=== PATIENT | female | born 1970 | race Caucasian/White ===

== ENCOUNTER 2016-06-08 12:16 | Emergency (ER) | payer SELFPAY ==
[~2016-06-08] VITALS: Ht 162.6 cm; Wt 63.0 kg
[~2016-06-08 12:16] MED LIST: ACETTAB3 OR; AMOX/K CLAV875 M1 PO; AMOXICILLIN/CL875 MG PO; AMOXICILLIN/PO500 MG PO; AMOXIL500 M1 OR; AMOXIL500 MG OR; ASPIRIN LOW81 M1 PO; ATUSS DS OR; AUGMENTIN500 MG OR; CALCIPOTRIEN0.005 % EX; CEPHALEXIN500 MG PO; CILOSTAZOL100 MG PO; CIPRO500 MG OR; CIPROFLOXACN500 MG PO; CLEOCIN150 MG PO; CLOBETASOL0.054 EX; CORTISPORIN OTI10 ML AD; DOXYCYCL HYC100 MG PO; FLEXERIL OR; FLOXIN OTIC OT; FLUOCINONIDE0.051 EX; HUMULIN R1 M1 SC; HYDROCHLOROT12.5 MG PO; KEFLEX500 M1 PO; LEVEMIR FL100 UNIT/M SC; LORTAB 10 OR; LORTAB 10-325 M1 TAB PO; LORTAB 5 OR; NAPROSYN500 MG OR; NAPROSYN500 MG PO; NO; NO HOME MEDS; NO MEDS; NOVOLOG100 IU/1 M SC; ONDANSETRON4 MG PO; PENICILLN VK500 MG OR; PERCOCET 5/321 COMBO PO; PERCOCET 5/325M1 TAB OR; PERCOCET 5/325M1 TAB PO; PREDNISONE10 MG PO; SIMVASTATIN20 MG PO; TORADOL OR; ULTRAM50 M1 PO; ULTRAM50 MG OR; ZYRTEC5 MG OR; [UNRECOGNIZED DRUG - CODE]; [UNRECOGNIZED DRUG - OTHER] PO; [UNRECOGNIZED DRUG - REMARK] SC
[2016-06-08] MEDS ORDERED: MOTRIN800 MG PO (13:41)
[2016-06-08] MEDS ORDERED: TRAMADOL HYDROC50 MG PO (13:41)
[2016-06-08 13:45] VITALS: BP 149/81
== END 2016-06-08 13:45 | disposition home or self-care (01) | DRG 556 ==
LOC: ED 12:16
DX: M25.572 Pain in left ankle and joints of left foot (principal); M79.605 Pain in left leg; Z91.81 History of falling

== ENCOUNTER 2017-06-27 16:28 | Emergency (ER) | payer SELFPAY ==
[~2017-06-27] VITALS: Ht 162.6 cm; Wt 60.9 kg
[~2017-06-27 16:28] MED LIST changes: +MOTRIN800 MG PO; +TRAMADOL HYDROC50 MG PO
[2017-06-27 16:59] LABS: HEMATOCRIT 40.6 % (37.0-47.0); HEMOGLOBIN 12.8 g/dl (12.0-16.0); IMMATURE GRANULOCYTES 0.2 % (0.0-1.0); MEAN CORPUSCULAR HGB 25.4 pG CALC (26.0-32.0); MEAN CORPUSCULAR HGB CONC 31.5 g/L CALC (32.0-36.0); NEUT# 2.97 thou/uL (2.00-7.15); RED BLOOD COUNT 5.03 mill/uL (4.20-5.60); RED CELL DISTRI WIDTH 13.4 % (11.5-15.5)
[2017-06-27 17:00] LABS: MEAN CELL VOLUME 80.7 fL CALC (80.0-100.0)
[2017-06-27 17:11] LABS: ALBUMIN 3.9 g/dL (3.2-5.0); ALKALINE PHOSPHATASE 76 u/l (38-126); ANION GAP 17 (6-22 (CALC)); BILIRUBIN, TOTAL 0.5 mg/dL (0.0-1.4); BUN 15 mg/dL (7-17); BUN/CREATININE RATIO 18 (12-20 (CALC)); CARBON DIOXIDE 28 mmol/l (22-30); CHLORIDE 101 mmol/l (95-108); CREATININE 0.8 mg/dL (0.5-1.0); GFR > 60 ML/MIN (>=60 (CALC)); GFR FOR AFR.AMER. > 60 ML/MIN (>=60 (CALC)); POTASSIUM 4.2 mmol/l (3.5-5.1); SGOT/AST 18 u/l (14-36); SGPT/ALT 28 u/l (9-52); SODIUM 142 mmol/l (137-146); TOTAL PROTEIN 7.4 g/dL (6.3-8.2)
[2017-06-27 17:18] LABS: ACT PARTIAL THROMBO TIME 24.3 SECONDS (20.0-32.5); PROTHROMBIN TIME 10.6 SECONDS (9.0-12.5)
[2017-06-27 17:23] LABS: MYOGLOBIN 43 ng/mL (0 - 62)
[2017-06-27 19:01] VITALS: BP 192/87
== END 2017-06-27 18:45 | disposition left against medical advice (07) | DRG 65 ==
LOC: ED 16:28
DX: I63.9 Cerebral infarction, unspecified (principal); G81.91 Hemiplegia, unspecified affecting right dominant side; R27.0 Ataxia, unspecified; R29.810 Facial weakness; R29.706 NIHSS score 6; F17.210 Nicotine dependence, cigarettes, uncomplicated; Z91.19 Patient's noncompliance with other medical treatment and regimen

== ENCOUNTER 2017-10-10 11:40 | Emergency (ER) | payer OTHER ==
[~2017-10-10] VITALS: Ht 162.6 cm; Wt 62.3 kg
[2017-10-10] MEDS ORDERED: ADULT ASPIRIN E81 MG PO (11:58)
[2017-10-10] MEDS ORDERED: BLOOD PRESSURE (11:59)
[2017-10-10] MEDS ORDERED: LEVEMIR FL100 UNIT/M SC (11:59)
[2017-10-10] MEDS ORDERED: SLEEPING PILL (12:00)
[2017-10-10] MEDS ORDERED: GABAPENTIN100 MG PO (12:00)
[2017-10-10] MEDS ORDERED: NAPROXEN250 MG PO (12:01)
[2017-10-10] MEDS ORDERED: LISINOPRIL10 M1 PO (12:19)
[2017-10-10] MEDS ORDERED: NEURONTIN300 MG PO (12:20)
[2017-10-10] MEDS ORDERED: ATORVASTATIN CA20 MG PO (12:21)
[2017-10-10] MEDS ORDERED: TRAZODONE50 MG PO (12:21)
[2017-10-10] MEDS ORDERED: ASPIRIN 8181 MG PO (12:22)
[2017-10-10] MEDS ORDERED: ESCITALOPRAM OXA5 MG PO (12:23)
[2017-10-10 14:15] VITALS: BP 121/63
== END 2017-10-10 14:15 | disposition home or self-care (01) ==
LOC: ED 11:40
DX: M25.511 Pain in right shoulder (principal)

== ENCOUNTER 2017-11-30 06:16 | Observation (INO) | payer OTHER ==
[~2017-11-30] VITALS: Ht 162.6 cm; Wt 67.0 kg
[~2017-11-30 06:16] MED LIST changes: +ACITRETIN25 MG; +ADULT ASPIRIN E81 MG PO; +ASPIRIN 8181 MG PO; +ATORVASTATIN CA20 MG PO; +BLOOD PRESSURE; +ESCITALOPRAM OXA5 MG PO; +GABAPENTIN100 MG PO; +LISINOPRIL10 M1 PO; +NAPROXEN250 MG PO; +NEURONTIN300 MG PO; +PROTONIX40 M2 PO; +SLEEP AID25 M1 PO; +SLEEPING PILL; +TRAMADOL HCL50 MG PO; +TRAZODONE50 MG PO
--- NOTE | 2017-11-30 06:16 | NUR ---
PT ARRIVED VIA EMS. INT IN PLACE BUT NOT PATENT. PT HOSTILE. NOT COOPERATING. ZOFRAN GIVEN EN ROUTE. BLOOD DRAWN AND INT IN PLACE. PT HAS WHAT APPEARS TO BE PSORISIS ALL OVER.
[2017-11-30] MEDS ORDERED: HYDRALAZINE25 MG PO (06:47)
--- NOTE | 2017-11-30 06:53 | NUR ---
EMS BS 183
[2017-11-30 06:56] LABS: HEMATOCRIT 35.4 % (37.0-47.0); HEMOGLOBIN 11.2 g/dl (12.0-16.0); IMMATURE GRANULOCYTES 0.4 % (0.0-5.0); MEAN CELL VOLUME 85.7 fL CALC (80.0-100.0); MEAN CORPUSCULAR HGB 27.1 pG CALC (26.0-32.0); MEAN CORPUSCULAR HGB CONC 31.6 g/L CALC (32.0-36.0); NEUT# 9.17 thou/uL (2.00-7.15); RED BLOOD COUNT 4.13 mill/uL (4.20-5.60); RED CELL DISTRI WIDTH 13.6 % (11.5-15.5)
--- NOTE | 2017-11-30 07:00 | NUR ---
RECEIVED REPORT FROM KLEVER SINGH
[2017-11-30 07:09] LABS: ALBUMIN 3.7 g/dL (3.2-5.0); ALKALINE PHOSPHATASE 88 u/l (38-126); AMYLASE < 30 u/l (30-110); ANION GAP 19 (6-22 (CALC)); BILIRUBIN, TOTAL 0.8 mg/dL (0.0-1.4); BUN 16 mg/dL (7-17); BUN/CREATININE RATIO 15 (12-20 (CALC)); CARBON DIOXIDE 23 mmol/l (22-30); CHLORIDE 106 mmol/l (95-108); GFR 60 ML/MIN (>=60 (CALC)); GFR FOR AFR.AMER. > 60 ML/MIN (>=60 (CALC)); LIPASE 20 u/l (23-300); POTASSIUM 4.4 mmol/l (3.5-5.1); SGOT/AST 21 u/l (14-36); SODIUM 143 mmol/l (137-146); TOTAL PROTEIN 7.6 g/dL (6.3-8.2)
[2017-11-30 07:21] LABS: MYOGLOBIN 37 ng/mL (0 - 62)
--- NOTE | 2017-11-30 08:02 | NUR ---
PT RETURN FROM CT IN STABLE CONDITION VIA STRETCHER, CONTINUES TO C/O PAIN AND NAUSEA. DR ORTEGA ADVISED. PT MEDICATED ORDERED.
--- NOTE | 2017-11-30 08:15 | NUR ---
URINE OBTAINED VIA STRAIGHT CATH. PT TOLERATED WITHOUT DIFFICULTY. REPORTS DECREASE IN PAIN AND NAUSEA, RATING PAIN NOW 3/10. PT GIVEN CALL LIGHT AND INSTRUCTED TO CALL FOR ASSIST.
--- NOTE | 2017-11-30 08:33 | NUR ---
SUPPOSITORY GIVEN ORDERED. INSTRUCTED PT TO CALL FOR ASSIST. CALL LIGHT IN REACH.
[2017-11-30 08:34] LABS: URINE BILIRUBIN - DIPSTICK NEGATIVE (NEGATIVE); URINE BLOOD DIPSTICK SMALL (NEGATIVE); URINE COLOR YELLOW; URINE GLUCOSE - DIPSTICK 250 mg/dL (NEGATIVE); URINE KETONE 40 mg/dL (NEGATIVE); URINE LEUK ESTERASE NEGATIVE (NEGATIVE); URINE NITRITE - DIPSTICK NEGATIVE (Negative); URINE PROTEIN - DIPSTICK 30 mg/dL (NEG-TRACE)
[2017-11-30 08:36] LABS: URINE CLARITY CLEAR; URINE MUCUS MODERATE hpf (NONE-FEW); URINE RBC 0-2 RBC/hpf (0-5)
--- NOTE | 2017-11-30 09:54 | NUR ---
PT HAS MODERATE BOWEL MOVEMENT. AMBULATES TO AND FROM RESTROOM WITH LIMPING GAIT WHICH IS HER BASELINE.
[2017-11-30] MEDS ORDERED: MIRALAX3350 N1 PO (09:58)
[2017-11-30] MEDS ORDERED: ZOFRAN ODT4 MG PO (09:58)
[2017-11-30] MEDS ORDERED: PREVACID30 M3 PO (09:58)
--- NOTE | 2017-11-30 10:40 | NUR ---
PATIENT DIRECTOR REACTOR PROJECTS LIGHT, REPORTS ABD PAIN 11/03. INFORMED.
[2017-11-30 11:12] LABS: BARBITURATES NEGATIVE (NEGATIVE); COCAINE NEGATIVE (NEGATIVE); METHADONE NEGATIVE (NEGATIVE); OXCYCODONE NEGATIVE (NEGATIVE); TETRAHYDROCANNABIONOL NEGATIVE (NEGATIVE); TRICYLIC ANTIDEPRESSANTS NEGATIVE (NEGATIVE)
--- NOTE | 2017-11-30 11:20 | NUR ---
PT REPORTS PAIN AND NAUSEA RETURNING, DR ORTEGA NOTIFIED. PT MEDICATED ORDERERED.
--- NOTE | 2017-11-30 11:37 | NUR ---
ATTEMPTED TO CALL REPORT, NURSE IN ANOTHER PT'S ROOM
--- NOTE | 2017-11-30 11:43 | NUR ---
PT APPEARS MORE COMFORTABLE, REPORTS DECREASE IN PAIN. NO WRETCHING NOTED AT THIS TIME. PT PLACED ON PORTABLE TELE BOX, AWAITING TRANSPORT TO [facility].
--- NOTE | 2017-11-30 11:57 | NUR ---
KLEVER STERN ANSWERED AND SAID SHE WOULD CALL BACK
--- NOTE | 2017-11-30 12:45 | NUR ---
PT TO MEDSURG IN STABLE CONDITION VIA STRETCHER.
--- NOTE | 2017-11-30 13:10 | NUR ---
REPORT RECEIVED FROM FANTA IN ED, PT ARRIVED ON UNIT VIA STRETCHER @ 1233 AND ASSISTED TO BED, DID NOT ANSWER ORIENTATION QUESTIONS TO DATE BUT TO PLACE AND . DRY HEAVING NOISILY & PROFUSELY WITH NO VOMITUS, RESTLESS IN BED, GOWN SOILED WITH BM, BODY SOILED WITH BM ALSO, PERICARE GIVEN AND GOWN CHANGED. PT SUDDENLY APPEAR TO GET COMFORTABLE, CLOSED HER EYES AND WILL NO MORE RESPOND TO QUESTIONS AT THIS TIME. BED AND BODY ALARMS PLACED, CALL SOTO IN REACH, IVF INFUSING, WILL CONTINUE TO MONITOR.
[2017-11-30 13:30] VITALS: BP 182/79
[2017-11-30 14:36] VITALS: BP 137/87
--- NOTE | 2017-11-30 18:48 | NUR ---
PT HAS BEEN DRYHEAVING ALL AFTERNOON AND IT GETS WORSE WHENEVER SHE HAS COMPANY, SHE HAS ALSO BEEN ASKING FOR PAIN MED AND SPECIFICALLY ASKED FOR DILAUDID WHICH IS NOT ORDERED, [employer] NOTIFIED OF CONDITION AND GAVE NEW ORDERS FOR PHENERGAN ONLY. MANY FAMILY MEMBERS ARE ASKING FOR INFORMATION ALSO, [employer] (SON) WAS GIVEN PRIVACY CODE NUMBER AFTER PT GAVE CONSENT FOR HIM TO HAVE IT. HE WAS ADVISED TO CONTACT ALL THE OTHER FAMILY MEMBERS AND UPDATE THEM OF HER CONDITION RATHER THAN HAVING SEVERAL MEMBERS CALLING FOR INFORMATION INDIVIDUALLY.
[2017-11-30 19:24] VITALS: BP 132/76
--- NOTE | 2017-11-30 19:30 | NUR ---
PATIENT RESTING IN BED-AWAKE WITH DRY HEEVES. PATIENT WAS JUST MEDICATED FOR N/V WITH PHENERGAN 1 HOUR AGO. CONT TO DRINK GATORADE. IVF NS PATENT AND INFUSING VIA LEFT AC SITE. SITE APPEARS HEALTHY AT THIS TIME. CALL LIGHT IN REACH. WILL CONT TO MONITOR.
--- NOTE | 2017-11-30 21:15 | NUR ---
PATIENT RESTING IN BED. PATIENT CONT TO DRINK GATORADE AND THEN VOMITS IT BACK UP. PATIENT MEDICATED WITH ZOFRAN ORDERED FOR N/V. ACCU-CHECK 293 TONIGHT. PATIENT REFUSING TO TAKE ANY PO MEDS AT THIS TIME. PATIENT IS VERY DRAMATIC. APPEARS EVEN WORSE WHEN STAFF IN ROOM. CALL LIGHT IN REACH. WILL CONT TO MONITOR.
--- NOTE | 2017-11-30 23:00 | NUR ---
PATIENT RESTING IN BED C/O SEVERE N/V. MOSTLY DRY HEEVES. PATIENT IS TAKING IN ORAL FLUIDS BUT VOMITS THEM BACK UP SOON SHE DRINKS THEM. IV SITE TO LEFT AC INTACT WITH IV FLUIDS NS PATENT AND INFUSING AT 125CC/HR. SITE REMAINS HEALTHY AT THIS TIME. TELE MONITOR IN PLACE. SAFETY PRECAUTIONS REINFORCED. CALL LIGHT IN REACH. WILL CONT TO MONITOR.
[2017-12-01] VITALS: BP 134/71
--- NOTE | 2017-12-01 00:30 | NUR ---
PATIENT MEDICATED WITH PHENERGAN 12.5MG IVP FOR N/V. RESTING IN BED. CALL LIGHT IN REACH. WILL CONT TO MONITOR.
--- NOTE | 2017-12-01 01:14 | NUR ---
PATIENT RESTING IN BED-CONT TO ASK FOR SOMETHING TO DRINK. EXPLAINED THAT SHE IS VOMITTING EVERYTHING THAT SHE DRINKS AND SHOULD HOLD ON FLUIDS AT THIS TIME. PATIENT MEDICATED WITH ATIVAN 1MG AND REGLAN 10 MG IVP ORDERED. CALL LIGHT IN REACH. WILL CONT TO MONITOR.
--- NOTE | 2017-12-01 01:45 | NUR ---
APPEARS SLEEPING AT THIS TIME-POSITIONED ON RIGHT SIDE WITH EYES CLOSED. RESPS ARE EVEN AND UNLABORED. IVF NS PATENT AND INFUSING AT 125CC/HR. SITE APPEARS HEALTHY AT THIS TIME. CALL LIGHT IN REACH. WILL CONT TO MONITOR.
--- NOTE | 2017-12-01 03:47 | NUR ---
PATIENT RESTING IN BED C/O SEVERE NAUSEA AND VOMITTING. MOSTLY DRY HEEVES-PATIENT IS TAKING IN ORAL FLUIDS BUT VOMITS THEM BACK UP SOON SHE DRINKS THEM. IV SITE TO LEFT AC INTACT WITH IVF NS PATENT AND INFUSING AT 125CC/HR. SITE APPEARS HEALTHY AT THIS TIME. TELE MONITOR IN PLACE. SAFETY PRECAUTIONS REINFORCED. CALL LIGHT IN REACH. WILL CONT TO MONITOR.
[2017-12-01 04:21] VITALS: BP 150/67
--- NOTE | 2017-12-01 04:52 | NUR ---
RESTING IN BED-APPEARS SLEEPING AT THIS TIME. IVF PATENT AND INFUSING VIA LEFT AC SITE. TELE MONITOR IN PLACE. CALL LIGHT IN REACH. WILL CONT TO MONITOR.
--- NOTE | 2017-12-01 07:24 | NUR ---
ENTERED PT'S ROOM, PT ASKED FOR SOME WATER WHICH WAS GIVEN, TOLERATED WELL; RESP EVEN UNLABORED, WILL CONTINUE TO MONITOR.
[2017-12-01 07:46] VITALS: BP 158/73
--- NOTE | 2017-12-01 07:46 | NUR ---
PT ALERT ORIENT X3; NO NAUSEA OR VOMITING NOTED; RESP EVEN UNLABORED; R SIDED WEAKNESS; LUNGS CLEAR; ABD SOFT NON TENDER, ACTIVE BS;#18 LAC, NS INFUSING @125ML/HR, SITE APPEARS HEALTHY; TELE IN PLACE; HX OF PSORISIS NOTED; R GREAT TOE AMPUTATED, SITE APPEARS HEALTHY; RED AREA TO R ANKLE OPEN TO AIR, NO DRAINAGE NOTED; TRACE EDEMA L ANKLE; BED IN LOW LOCKED POSITION, CALL LIGHT IN REACH; SAFETY PRECAUTION REINFORCED. WILL CONTINUE TO MONITOR.
--- NOTE | 2017-12-01 08:57 | NUR ---
ADMINISTERED PHENERGAN PER PT REQUEST, ALONG WITH AM MEDS; DRY HEAVING NOTED; WILL CONTINUE TO MONITOR.
--- NOTE | 2017-12-01 09:10 | NUR ---
jacek dick, at bs to discuss poc
[2017-12-01 11:10] VITALS: BP 134/53
--- NOTE | 2017-12-01 11:31 | NUR ---
DR BOWEN AND TIARA BANKS AT [facility] TO DISCUSS POC
--- NOTE | 2017-12-01 11:50 | NUR ---
ENTERED ROOM PT SITTING UP EDGE OF BED UNDRESSED, ANGRY, STATED SHE HAS TO USE THE COMMODE, ASSISTED PT TO BSC, PT PULLED OUT TELE STATED SHE DOES NOT NEED IT; SPOKE WITH TIARA BANKS SHE STATED IT'S OK TO LEAVE TELE OFF, NOTIFY DAVID, ER; PT VOIDED 500CC RADHA URINE; SENT UA TO LAB; PT BACK INTO TO BED; PT EDUCATED TO CALL FOR ASSISTANCE. CALL SOTO IN REACH.
[2017-12-01] MEDS ORDERED: COMPAZINE10 MG PO (12:20)
--- NOTE | 2017-12-01 14:18 | NUR ---
DC INSTRUCTIONS REVIEWED WITH PT, PT VERBALIZE UNDERSTANDING; PT'S SON WAS CALLED TO PICK HER UP AND TO BRING CLOTHING FOR PT. PT VOICED NO CONCERNS;
--- NOTE | 2017-12-01 15:31 | NUR ---
PT LAYING IN BED WAITING FOR HER RIDE; NO SIGN OF DISTRESS NOTED; PT VOICED NO CONCERNS; HER SON WAS CALLED AGAIN TO SEE IF HE'S ON HIS WAY, HE STATED THAT SOMEONE ELSE WILL PICK HER UP AND SHOULD BE AT [facility] SOON WITH HER CLOTHING. WILL CONTINUE TO MONITOR.
--- NOTE | 2017-12-01 15:43 | NUR ---
PT BEING TRFO VIA W/C BY A VOLUNTEER IN STABLE CONDITION.
== END 2017-12-01 15:45 | disposition home or self-care (01) ==
LOC: ED 06:16 → ED-I 10:52 → ED 11:26 → MS2 11:27
PROVIDERS: Emergency Medicine; ADMIT Internal Medicine; ATTEND Internal Medicine
DX: K56.41 Fecal impaction (principal); I10 Essential (primary) hypertension; E11.51 Type 2 diabetes mellitus with diabetic peripheral angiopathy without gangrene; I25.10 Atherosclerotic heart disease of native coronary artery without angina pectoris; E78.5 Hyperlipidemia, unspecified; I69.951 Hemiplegia and hemiparesis following unspecified cerebrovascular disease affecting right dominant side; L40.9 Psoriasis, unspecified; F17.210 Nicotine dependence, cigarettes, uncomplicated; Z79.4 Long term (current) use of insulin; Z91.19 Patient's noncompliance with other medical treatment and regimen; Z95.820 Peripheral vascular angioplasty status with implants and grafts; Z95.1 Presence of aortocoronary bypass graft
CPT/HCPCS: G0378; J2060; Q9967; S0164

== ENCOUNTER 2017-12-04 19:56 | Emergency (ER) | payer OTHER ==
[~2017-12-04] VITALS: Ht 162.6 cm; Wt 59.1 kg
[~2017-12-04 19:56] MED LIST changes: +COMPAZINE10 MG PO; +HYDRALAZINE25 MG PO; +MIRALAX3350 N1 PO; +PREVACID30 M3 PO; +ZOFRAN ODT4 MG PO
[2017-12-04 20:45] LABS: HEMATOCRIT 37.6 % (37.0-47.0); HEMOGLOBIN 12.1 g/dl (12.0-16.0); IMMATURE GRANULOCYTES 0.7 % (0.0-5.0); MEAN CELL VOLUME 84.9 fL CALC (80.0-100.0); MEAN CORPUSCULAR HGB 27.3 pG CALC (26.0-32.0); MEAN CORPUSCULAR HGB CONC 32.2 g/L CALC (32.0-36.0); NEUT# 12.32 thou/uL (2.00-7.15); RED BLOOD COUNT 4.43 mill/uL (4.20-5.60); RED CELL DISTRI WIDTH 13.2 % (11.5-15.5)
[2017-12-04 21:05] LABS: ALBUMIN 3.5 g/dL (3.2-5.0); ALKALINE PHOSPHATASE 62 u/l (38-126); AMYLASE < 30 u/l (30-110); ANION GAP 25 (6-22 (CALC)); BILIRUBIN, TOTAL 0.7 mg/dL (0.0-1.4); BUN 18 mg/dL (7-17); BUN/CREATININE RATIO 20 (12-20 (CALC)); CARBON DIOXIDE 21 mmol/l (22-30); CHLORIDE 100 mmol/l (95-108); CREATININE 0.9 mg/dL (0.5-1.0); GFR > 60 ML/MIN (>=60 (CALC)); GFR FOR AFR.AMER. > 60 ML/MIN (>=60 (CALC)); LIPASE 22 u/l (23-300); POTASSIUM 4.4 mmol/l (3.5-5.1); SGOT/AST 18 u/l (14-36); SODIUM 142 mmol/l (137-146); TOTAL PROTEIN 6.9 g/dL (6.3-8.2)
[2017-12-04] MEDS ORDERED: PHENERGAN25 MG RE (22:48)
[2017-12-04 23:55] VITALS: BP 170/91
== END 2017-12-04 23:30 | disposition home or self-care (01) ==
LOC: ED 19:56
PROVIDERS: Family Medicine
DX: R11.10 Vomiting, unspecified (principal); K59.00 Constipation, unspecified; I10 Essential (primary) hypertension; E11.9 Type 2 diabetes mellitus without complications; Z95.1 Presence of aortocoronary bypass graft; Z95.820 Peripheral vascular angioplasty status with implants and grafts; R10.9 Unspecified abdominal pain

== ENCOUNTER 2017-12-16 12:47 | Inpatient (IN) | payer OTHER ==
[2017-12-16] VITALS (7 sets, daily range): BP systolic 145–192; BP diastolic 75–97
[~2017-12-16] VITALS: Ht 162.6 cm; Wt 59.1 kg
[~2017-12-16 12:47] MED LIST changes: +PHENERGAN25 MG RE
--- NOTE | 2017-12-16 13:20 | NUR ---
PT TRIAGED, TO ROOM VIA WC.
[2017-12-16 14:48] LABS: HEMOGLOBIN 10.4 g/dl (12.0-16.0); IMMATURE GRANULOCYTES 0.6 % (0.0-5.0); MEAN CELL VOLUME 86.8 fL CALC (80.0-100.0); MEAN CORPUSCULAR HGB 27.4 pG CALC (26.0-32.0); MEAN CORPUSCULAR HGB CONC 31.5 g/L CALC (32.0-36.0); NEUT# 4.7 thou/uL (2.00-7.15); RED BLOOD COUNT 3.8 mill/uL (4.20-5.60); RED CELL DISTRI WIDTH 13.4 % (11.5-15.5)
--- NOTE | 2017-12-16 14:55 | NUR ---
IV ABT INFUSING PT AWAITING TEST RESULTS. CALL LIGHT WIHTIN REACH AFEBRILE. VSS.
[2017-12-16 15:02] LABS: ALBUMIN 3.2 g/dL (3.2-5.0); ALKALINE PHOSPHATASE 70 u/l (38-126); ANION GAP 17 (6-22 (CALC)); BILIRUBIN, TOTAL 0.7 mg/dL (0.0-1.4); BUN 17 mg/dL (7-17); BUN/CREATININE RATIO 17 (12-20 (CALC)); CARBON DIOXIDE 26 mmol/l (22-30); CHLORIDE 99 mmol/l (95-108); GFR 60 ML/MIN (>=60 (CALC)); GFR FOR AFR.AMER. > 60 ML/MIN (>=60 (CALC)); SGOT/AST 19 u/l (14-36); SODIUM 137 mmol/l (137-146); TOTAL PROTEIN 6.6 g/dL (6.3-8.2)
[2017-12-16 15:03] LABS: POTASSIUM 5.3 mmol/l (3.5-5.1)
--- NOTE | 2017-12-16 16:27 | NUR ---
MD AT BEDSIDE TO DISCUSS RESULTS AND PLAN OF CARE.
--- NOTE | 2017-12-16 16:37 | NUR ---
ROPE LAYING MACHINE OPERATOR AT BEDSIDE EVALUALTING PT PRIOR TO OR TRANSFER.
--- NOTE | 2017-12-16 17:20 | NUR ---
PT TO OR VIA STRETCHER ACCOMPANIED BY OR NURSE. IV SITE HEALTHY. VSS. AFEBRILE. IV ABTS COMPLETED.
--- NOTE | 2017-12-16 21:00 | NUR ---
PATIENT ARRIVED FROM PACU VIA STETCHER WITH PACU STAFF IN ATTENDANCE. PATIENT IS DROWSY BUT AROUSABLE AND TRANSFERRED FROM STRETCHER TO BED. PATIENT WITH LARGE LLE DRESSING INTACT AND SECURED WITH BUD WRAP-ELEVATED ON PILLOWS. TOES ARE WARM TO TOUCH AND PATIENT IS ABLE TO MOVE THE LEFT FOOT TOES. ICE PACK TO BEHIND OF THE LEFT KNEE. IVF SITE TO LEFT HAND-SITE APPEARS HEALTHY AT THIS TIME WITH IVF NS PATENT AND INFUSING ORDERED. BS IN PACU WAS 128. PATIENT ORIENTED TO ROOM AND SURROUNDINGS. INSTRUCTED ON USE OF NURSE CALL LIGHT SYSTEM AND TV REMOTE. SAFETY PRECAUTIONS REVIEWED WITH PATIENT. CALL LIGHT IN REACH. WILL CONT TO MONITOR.
--- NOTE | 2017-12-16 21:30 | NUR ---
PATIENT MAX ASSIST TO THE BSC-PATIENT WITH HX OF CVA WITH RIGHT SIDED WEAKNESS. PATIENT WAS ABLE TO VOID 450CC OF RADHA URINE AND HAD LARGE BROWN FORMED BM. ASSISTED BACK TO BED. PATIENT WITH DRY HEAVES AND LOUD WRETCHING. MEDICATED WITH ZOFRAN 4MG IVP. LEFT FOOT ELEVATED ON PILLOWS. CALL LIGHT IN REACH. WILL CONT TO MONITOR.
--- NOTE | 2017-12-17 02:28 | NUR ---
PATIENT RESTING IN BED WITH DRY HEEVES. NO EMESIS JUST LOUD WRETCHING. PATIENT MEDICATED WITH ZOFRAN 4MG IVP ORDERED FOR N/V. IVF PATENT AND INFUSING VIA LEFT HAND SITE. LARGE BULKY DRESSING TO LLE INTACT AND SECURED WITH BUD WRAP. ELEVATED ON PILLOWS. SAFETY PRECAUTIONS REINFORCED.CALL LIGHT IN REACH. WILL CONT TO MONITOR,
[2017-12-17 04:41] VITALS: BP 151/77
--- NOTE | 2017-12-17 04:56 | NUR ---
RESTING QUIETLY AT THIS TIME-RESP ARE EVEN AND UNLABORED. NO DRY HEAVES OR WRTCHING AT THIS TIME. IVF NS PATENT AND INFUSING AT 100CC/HR VIA LEFT HAND SITE. CALL LIGHT IN REACH. WILL CONT TO MONITOR.
--- NOTE | 2017-12-17 06:16 | NUR ---
PATIENT AWAKE AND AGAIN STARTED WITH DRY HEAVES AND WRETCHING-WANTS SOMETHING TO DRINK BUT UNABLE TO KEEP ANYTHING DOWN. PATIENT MAX ASSIST OOB TO BSC TO VOID AND THEN BACK TO BED. PATIENT MEDICATED WITH ZOFRAN 4MG IVP FOR N/V. SAFETY PRECAUTIONS REINFORCED. CALL LIGHT IN REACH. WILL CONT TO MONITOR.
--- NOTE | 2017-12-17 07:15 | NUR ---
REPORT RECEIVED FROM KLEEVR DIAZ;PT APPEARS TO BE SLEEPING IN RIGHT SIDE LAYING POSITION;RESPIRATIONS EVEN AND UNLABORED ON RA;NO S/S OF DISTRESS NOTED;LEFT LEG ELEVATED ON X2 PILLOWS,DRESSING APPEARS CDI;IV FLUIDS INFUSING WITH EASE;FALL PRECAUTIONS NOTED WITH BED IN THE LOWEST POSITION AND CALL LIGHT IN REACH;WILL CONTINUE TO MONITOR
--- NOTE | 2017-12-17 07:50 | NUR ---
PT COMPLAINS OF NAUSEA UNRELIEVED BY PRN ZOFRAN; NOTIFIED AND NEW ORDERS RECEIVED.
[2017-12-17 08:13] VITALS: BP 192/83
--- NOTE | 2017-12-17 08:15 | NUR ---
PT RESTING IN BED,DRY HEAVING;PT MEDICATED WITH PRN PHENERGAN 25MG IVP,WILL MONITOR FOR EFFECT;VS OBTAINED AND ASSESSMENT COMPLETED;RESPIRATIONS EVEN AND UNLABORED ON RA,CLEAR LUNG SOUNDS NOTED;ABDOMEN SOFT ON PALPATION AND HYPOACTIVE IN ALL 4 QUADRANTS;WEAK PEDAL PULSE TO RIGHT FOOT NOTED;UNABLE TO PALPATE LEFT DUE TO DRESSING;PT IS POST OP DAY #1 LEFT HEEL I&D, DRESSING REMAINS CDI,WILL REINFORCE NEEDED;CAP REFILL LESS THAN 3 SECONDS;ENCOURAGED ELEVATION OF LEFT FOOT ON X2 PILLOWS,ICE PACKS ALSO PROVIDED;SCD NOTED TO RIGHT LEG;LEFT SIDED WEAKNESS SHOULD BE NOTED R/T HX OF CVA;#20G TO RIGHT HAND INFUSING NS @ 100ML/HR,SITE APPEARS HEALTHY;PT DENIES ANY CURRENT PAIN,PAIN SCALE AND REPORTING EDUCATED;ACCUCHECK 215,PT COVERED WITH 3UNITS OF NOVOLOG PER ORDER;INSTRUCTED PT TO CALL FOR ASSISTANCE IF NEEDED;FALL PRECAUTIONS IN PLACE WITH CALL LIGHT IN REACH;WILL CONTINUE TO MONITOR
[2017-12-17 09:02] VITALS: BP 190/88
--- NOTE | 2017-12-17 09:08 | NUR ---
PT CURRENT BP 190/88 HR 100. NOTIFIED AND NEW ORDERS RECEIVED AT THIS TIME.
[2017-12-17 09:18] LABS: ALBUMIN 3.3 g/dL (3.2-5.0); ALKALINE PHOSPHATASE 69 u/l (38-126); ANION GAP 15 (6-22 (CALC)); BILIRUBIN, TOTAL 0.5 mg/dL (0.0-1.4); BUN 14 mg/dL (7-17); BUN/CREATININE RATIO 16 (12-20 (CALC)); CARBON DIOXIDE 27 mmol/l (22-30); CHLORIDE 103 mmol/l (95-108); CREATININE 0.9 mg/dL (0.5-1.0); GFR > 60 ML/MIN (>=60 (CALC)); GFR FOR AFR.AMER. > 60 ML/MIN (>=60 (CALC)); SGOT/AST 15 u/l (14-36); SODIUM 140 mmol/l (137-146)
--- NOTE | 2017-12-17 09:25 | NUR ---
PT MEDICATED WITH 20 MG OF LABETALOL IVP BY JONATHAN SHERMAN RN;WILL MONITOR FOR EFFECTIVENESS;PT REPORTS NAUSEA HAS DECREASED AT THIS TIME.
[2017-12-17 10:05] VITALS: BP 130/68
--- NOTE | 2017-12-17 10:05 | NUR ---
BP RE-CHECK 130/68 HR 81
[2017-12-17 10:09] LABS: HEMATOCRIT 29.6 % (37.0-47.0); HEMOGLOBIN 9.1 g/dl (12.0-16.0); IMMATURE GRANULOCYTES 0.4 % (0.0-5.0); MEAN CELL VOLUME 86.5 fL CALC (80.0-100.0); MEAN CORPUSCULAR HGB 26.6 pG CALC (26.0-32.0); MEAN CORPUSCULAR HGB CONC 30.7 g/L CALC (32.0-36.0); NEUT# 9.05 thou/uL (2.00-7.15); RED BLOOD COUNT 3.42 mill/uL (4.20-5.60); RED CELL DISTRI WIDTH 13.4 % (11.5-15.5)
--- NOTE | 2017-12-17 11:00 | NUR ---
AT BEDSIDE DISCUSSING POC.
--- NOTE | 2017-12-17 11:20 | NUR ---
PT RESTING IN BED WITH SIGNIFICANT OTHER AT BEDSIDE;PT DENIES ANY CURRENT PAIN, REPORTS NAUSEA IS STILL PRESENT BUT DECREASED SINCE THIS MORNING;EMESIS BAGS PROVIDED;ACCUCHECK 199, PT COVERED WITH 1 UNIT OF NOVOLOG PER ORDER;IV FLUIDS CONTINUE TO INFUSE WITH EASE TO RIGHT HAND;CURRENT BP 145/67 HR 79,PT MEDICATED WITH SCHEDULED APRESOLINE 25MG PO AND LISINOPRIL 10MG PO ADMINISTERED AT THIS TIME;PT DENIES ANY ADDITIONAL NEEDS;ENCOURAGED TO KEEP LLE ELEVATED AT ALL TIMES;CALL LIGHT IN REACH;WILL CONTINUE TO MONITOR
--- NOTE | 2017-12-17 13:40 | NUR ---
PT MEDICATED WITH PHENERGAN 25MG IVP FOR NAUSEA AT THIS TIME,WILL CONTINUE TO MONITOR
[2017-12-17 15:30] VITALS: BP 161/72
--- NOTE | 2017-12-17 15:32 | NUR ---
S: PILAR KABA is a 47 F who presents with <problem>. She has a history of WOUND. All medications in patient's chart were reviewed. O: VS: BP <145/67>, P<79>, RR<18>,T<97.7> W <59kg>, HT<64 IN>, Scr=<1.0>,CrCl= <60 ml/min> A: Blood culture <is pending which is sensitive to <>. WOUND IS GROWING E.COLI P: Patient is on VANCO ZSYN. Vancomycin ordered for pharmacy to dose. Start Vancomycin 750 Q12H IV Q12H. Vancomycin trough is drawn before the 4th dose on <12/18/17 @2130>. Vancomycin goal trough is between <10-15 mcg/ml>. Pharmacy will follow and or advise on antibiotics use as needed. JOSS GONZALEZ, PHARMD
--- NOTE | 2017-12-17 16:45 | NUR ---
PT APPEARS TO BE SLEEPING IN RIGHT SIDE LAYING POSITION WITH LEFT FOOT ELEVATED ON PILLOWS;NO S/S OF DISTRESS NOTED;RESPIRATIONS APPEAR EVEN AND UNLABORED ON RA;IV FLUIDS CONTINUE TO INFUSE TO RIGHT HAND WITH EASE;FALL PRECAUTIONS IN PLACE WITH BED IN THE LOWEST POSITION;CALL LIGHT IN REACH;WILL CONTINUE TO MONITOR
[2017-12-17 19:27] VITALS: BP 158/74
--- NOTE | 2017-12-17 20:15 | NUR ---
PATIENT RESTING IN BED-CONT TO HAVE DRY HEAVES AND C/O BACK PAIN-7/10 ON PAIN SCALE. PATIENT MEDICATED WITH PHENERGAN 25MG IVP FOR N/V. MEDICATED WITH MORPHINE 2MG IVP FOR BACK PAIN. PATIENT WITH LARGE BULKY DRESSING TO LLE INTACT-ENCOURAGED PATIENT TO ELEVATE THE LLE BUT NOT ALWAYS COMPLIANTS. IV SITE TO RIGHT HAND INTACT WITH IVF D51/2NS PATENT AND INFUSING AT 75CC/HR. SITE APPEARS HEALTHY AT THIS TIME.BED ALARM IN PLACE FOR PATIENT SAFETY. CALL LIGHT IN REACH. WILL CONT TO MONITOR.
--- NOTE | 2017-12-17 22:15 | NUR ---
BS-230 TONIGHT. PATIENT IS STILL NOT TAKING ANYPO FLUIDS OR FOOD. SPOKE TO DR. CLARKE AND ORDER RECIEVED TO HOLD LEVEMIR AND NOVALOG TONIGHT. PATIENT IS NON-COMPLIANT WITH KEEPING LLE ELEVATED ON PILLOWS. REINFORCED WITH PATIENT THE NEED TO KEEP THE LE ELEVATED FOR SWELLING AND PAIN. VERBALIZES UNDERSTANDING OF INSTRUCTIONS. BED ALARM IN REACH. WILL CONT TO MONITOR.
[2017-12-18 00:16] VITALS: BP 122/62
--- NOTE | 2017-12-18 02:56 | NUR ---
APPEARS SLEEPING AT THIS TIME. CALL LIGHT IN REACH. BED ALARM IN PLACE FOR PATIENT SAFETY. WILL CONT TO MONITOR.
[2017-12-18 04:48] VITALS: BP 110/58
[2017-12-18 05:34] LABS: HEMATOCRIT 26.5 % (37.0-47.0); HEMOGLOBIN 8.3 g/dl (12.0-16.0); IMMATURE GRANULOCYTES 0.5 % (0.0-5.0); MEAN CELL VOLUME 86.3 fL CALC (80.0-100.0); MEAN CORPUSCULAR HGB CONC 31.3 g/L CALC (32.0-36.0); NEUT# 4.5 thou/uL (2.00-7.15); RED BLOOD COUNT 3.07 mill/uL (4.20-5.60); RED CELL DISTRI WIDTH 13.2 % (11.5-15.5)
[2017-12-18 05:42] LABS: ALKALINE PHOSPHATASE 46 u/l (38-126); ANION GAP 11 (6-22 (CALC)); BILIRUBIN, TOTAL 0.2 mg/dL (0.0-1.4); BUN 8 mg/dL (7-17); BUN/CREATININE RATIO 10 (12-20 (CALC)); CARBON DIOXIDE 29 mmol/l (22-30); CHLORIDE 105 mmol/l (95-108); CREATININE 0.8 mg/dL (0.5-1.0); GFR > 60 ML/MIN (>=60 (CALC)); GFR FOR AFR.AMER. > 60 ML/MIN (>=60 (CALC)); MAGNESIUM 1.9 mg/dL (1.6-2.3); POTASSIUM 4.7 mmol/l (3.5-5.1); SGOT/AST 9 u/l (14-36); SODIUM 139 mmol/l (137-146)
[2017-12-18 05:44] LABS: ALBUMIN 2.5 g/dL (3.2-5.0); TOTAL PROTEIN 5.4 g/dL (6.3-8.2)
--- NOTE | 2017-12-18 07:15 | NUR ---
REPORT RECEIVED FROM KLEVER DIAZ;PT RESTING IN BED,ALERT AND ORIENTED;PT REPORTS THAT SHE "FEELS MUCH BETTER";RESPIRATIONS EVEN AND UNLABORED ON RA;IV FLUIDS INFUSING WELL TO RIGHT FOREARM;ENCOURAGED ELEVATION OF LLE;FALL PRECAUTIONS IN PLACE WITH CALL LIGHT IN REACH;WILL CONTINUE TO MONITOR
[2017-12-18 08:00] VITALS: BP 148/67
--- NOTE | 2017-12-18 08:00 | NUR ---
PT RESTING AT BEDSIDE;PT DENIES ANY CURRENT PAIN OR NAUSEA,PAIN SCALE AND REPORTING RE-EDUCATED;VS OBTAINED AND ASSESSMENT COMPLETED;CURRENT BP 148/67;RESPIRATIONS EVEN AND UNLABORED ON RA,CLEAR LUNG SOUNDS;I.S. AT BEDSIDE AND PT INSTRUCTED ON USE 10X PER HOUR WHILE AWAKE;ABDOMEN SOFT ON PALPATION AND ACTIVE IN ALL 4 QUADRANTS;PT IS POST OP DAY #2 I&D LEFT HEEL,DRESSING REMAINS CDI WILL REINFORCE NEEDED;CAP REFILL LESS THAN 3 SECONDS,ENCOURAGED ELEVATION;RIGHT PEDAL PULSE WEAK,UNABLE TO ASSESS LEFT PEDAL PULSE DUE TO DRESSING;SCD IN PLACE;#22G TO RIGHT FOREARM INFUSING D5 1/2 NS @ 75ML/HR,SITE APPEARS HEALTHY;SKIN INTACT;ACCUCHECK 196 FOR BREAKFAST AND PT WAS COVERED WITH 1 UNIT OF NOVOLOG PER ORDER;ALL SAFETY PRECAUTIONS REINFORCED AT THIS TIME;PT DENIES ANY ADDITIONAL NEEDS AND IS INSTRUCTED TO CALL FOR ASSISTANCE IF NEEDED;FALL PRECAUTIONS IN PLACE WITH CALL LIGHT IN REACH;WILL CONTINUE TO MONITOR
--- NOTE | 2017-12-18 11:05 | NUR ---
AT BEDSIDE DISCUSSING POC.
[2017-12-18 11:34] VITALS: BP 125/53
--- NOTE | 2017-12-18 12:05 | NUR ---
PT RESTING AT BEDSIDE COMPLAINING OF NAUSEA/DRY HEAVING AND REQUESTING MEDICATION;PT MEDICATED WITH PRN PHENERGAN 25MG IVP;RESPIRATIONS EVEN AND UNLABORED ON RA;IV FLUIDS CONTINUE TO INFUSE TO RIGHT FOREARM WITH EASE;CONTINUE TO ENCOURAGED ELEVATION OF LLE,PT NON-COMPLIANT AT TIMES;PT DENIES ANY ADDITIONAL NEEDS AND IS ENCOURAGED TO CALL FOR ASSISTANCE IF NEEDED;FALL PRECAUTIONS IN PLACE WITH CALL LIGHT IN REACH;WILL CONTINUE TO MONITOR
[2017-12-18 15:25] VITALS: BP 136/75
--- NOTE | 2017-12-18 15:55 | NUR ---
PT REPORTS BACK PAIN RATING 10/10 ON THE PAIN SCALE AND NAUSEA, REQUESTING MEDICATION;PT MEDICATED WITH ZOFRAN 4MG IVP AND MORPHINE 2MG IVP BY KLEVER KHAN;WILL MONITOR FOR EFFECTIVENESS
--- NOTE | 2017-12-18 17:00 | NUR ---
PT RESTING IN BED,STILL REPORTING NAUSEA;PT HAS NOT VOMITED DURING THIS SHIFT, JUST SPITTING INTO EMESIS BAG;PT REPORTS PAIN HAS DECREASED IN BACK;RESPIRATIONS EVEN AND UNLABORED;IV FLUIDS CONTINUE TO INFUSE WITH EASE TO RIGHT FOREARM;CONTINUED ENCOURAGMENT TO ELEVATE LLE;FALL PRECAUTIONS REMAIN IN PLACE WITH CALL LIGHT IN REACH;WILL CONTINUE TO MONITOR
--- NOTE | 2017-12-18 19:20 | NUR ---
PT IS IN BED CURLED UP ON LEFT SIDE, LEFT FOOT NOT ELEVATED AT THIS TIME. BEDSIDE REPORT RECEIVED AND POC DISCUSSED W/PT AND SIGN OTHER AT BS. WILL FOLLOW-UP W/MEDICATIONS ORDERED AND COMPLETE ASSESSMENT. CALL LIGHT AT BEDSIDE.
[2017-12-18 20:45] VITALS: BP 145/77
--- NOTE | 2017-12-18 20:45 | NUR ---
PT MEDICATED FOR C/O NAUSEA, REPORTS LAST TIME VOMITING WAS 2 HOURS PRIOR. PT ASSESSMENT COMPLETED AND TIME ALLOWED FOR NAUSEA MEDICITON TO TAKE AFFECT PRIOR TO ADMINISTERING BP PO MEDICATION ORDERED. PT THEN MEDICATED FOR PAIN AND BP W/PO MEDICATIONS. PT PROCEEDED TO VOMIT/SPIT BP MEDICATION UP. PAIN MEDICATIONS WERE NOT FOUND IN EMESIS BAG. PHYSICIAN WILL BE CONTACTED FOR IV BP MEDICATIONS AND PT REASSESSED FOR NEED. PT ASSESSMENT COMPLETED AT THIS TIME. LUNG SOUNDS HAVE POST EXP WHEEZE, ABD SOFT/TENDER TO RUQ, DRESSING TO L FOOT CDI. FOOT NOT ELEVATED AT THIS TIME, THIS HAS BEEN DISCUSSED W/PT, EDUCATION PROVIDED.
[2017-12-19 00:15] VITALS: BP 166/81
--- NOTE | 2017-12-19 03:10 | NUR ---
PT APPEARS TO BE SLEEPING AT THIS TIME. IV PUMP WAS SOUNDING/LOW BATTERY. NO S/O DISTRESS NOTED AT THIS TIME. CALL LIGHT AT BEDSIDE.
[2017-12-19 04:27] VITALS: BP 149/76
--- NOTE | 2017-12-19 07:53 | NUR ---
SHIFT CHANGE REPORT FROM PERRY LOPES AWAKE AND ALERT RESTING IN BED, DRESSING TO LEFT LEG CDI, NO COMPLAINS AT THIS TIME, CALL SOTO IN REACH.
[2017-12-19 08:06] VITALS: BP 150/68
--- NOTE | 2017-12-19 11:04 | NUR ---
ONE JESUS AMEZQUITA "SUPPOSEDLY PT'S SPOUSE" CALLED REPORTING PT HAD BACK PAIN ALL NIGHT LAST NIGHT DUE TO LYING IN BED AND REQUESTING TO GIVE PAIN MED FOR BACK PAIN AT THIS TIME. PT WAS ASSESSED THIS AM AND AGAIN AT THIS TIME AND DENIED ANY PAIN, SHE IS RESTING COMFORTABLY IN BED AND DOES NOT SEEM TO BE EXPERIENCING ANY DISCOMFORT AT THIS TIME, WILL CONTINUE TO MONITOR.
[2017-12-19 11:11] VITALS: BP 119/69
[2017-12-19 15:31] VITALS: BP 106/58
--- NOTE | 2017-12-19 16:00 | NUR ---
DR DICKEY RUNDED AND DID DRESSING CHANGE, INFORMED PT HE WILL SEE HER IN HIS OFFICE NEXT WEEK AND DRESSING MUST REMAIN IN PLACE UNTIL SEEN, PT STATED UNDERSTANDING.
[2017-12-19 19:51] VITALS: BP 104/69; BP 139/53
--- NOTE | 2017-12-19 20:00 | NUR ---
PT ASSESSED AND MEDICATED FOR PAIN AND PM MEDICATIONS. PT IS SITTING ON SIDE OF THE BED W/FOOT DOWN. POC DISCUSSED AND PT ENCOURAGED TO KEEP FOOT ELEVATED. PT EXPRESSED UNDERSTANDING. PT DENIES N/V/D TODAY AND REPORTS LAST BM ON . PT REPORTS PAIN IN LOWER LEFT EXT 9/10 AT THIS TIME. BS WILL BE CHECKED, PT IS REQUESTING JUICE AT THIS TIME.
--- NOTE | 2017-12-19 22:41 | NUR ---
PT MEDICATED W/ANTIBIOTIC THERAPY AND ASSISTED IN REPOSITIONING. ENCOURAGED TO ELEVATE LLE ON PILLOW/REFUSED, ENCOURAGED TO PLACE ICE-PACK TO BACK OF LEFT KNEE/REFUSED. PT LEFT IN BED IN SUPINE POSITION W/LIGHTS LOW AND TV ON, REPORTEDLY GOING TO ATTEMPT TO GO TO SLEEP, DENIES ANY OTHER NEEDS, CALL LIGHT AT SIDE.
--- NOTE | 2017-12-20 00:12 | NUR ---
PT CALLED TO REQUEST PAIN MEDICATION. UPON ENTERING ROOM PT IS SITTING ON SIDE OF THE BED W/FOOT HANGING DOWN. I REINFORCED THE FACT THAT ELEVATING THE LLE WOULD ASSIST W/PAIN AND ASKED HER IF SHE WANTED TO LAY DOWN AND ELEVATE IT/SHE REFUSED STATING, "IT FEELS BETTER LIKE THIS." PT WAS THEN MEDICATED ORDERS PROVIDE AND SHE AGREED TO LAY DOWN, BUT REFUSED PILLOWS UNDER LLE. PT REPORTS THAT SHE IS UNABLE TO COVER HERSELF OR POOR ADDITIONAL WATER INTO HER CUP/PT ASSISTED W/ALL COMFORT MEASURES. PT DENIES ANY OTHER NEEDS AT THIS TIME AND CALL SYSTEM REINFORCED/NEED.
--- NOTE | 2017-12-20 01:31 | NUR ---
PT MEDICATED W/MORPHINE FOR BREAKTHROUGH PAIN REPORTING STILL 6/10 AND REQUESTING ADDITIONAL MEDICATION. PT WAS EDUCATED ON THE NEED FOR ICING BACK OF KNEE PHYSICIANS POST-OP ORDERS PROVIDE AND ELEVATING LLE PHYSICIANS ORDERS PROVIDE FOR. SHE STATED UNDERSTANDING, BUT STILL REFUSED NON-MEDICATING PAIN INTERVENTIONS.
[2017-12-20 04:25] VITALS: BP 149/65
--- NOTE | 2017-12-20 05:25 | NUR ---
PT WAS SLEEPING, BUT AWOKE TO MY ENTERING ROOM. SHE REPORTS THAT SHE "FEELS RESTED." DENIES ANY PAIN REPORTING 0/10 ON PAIN SCALE AT THIS TIME. NO OTHER S/O DISTRESS NOTED. DRESSING TO LLE CDI. IV FLUIDS ARE RUNNING D51/2NS@KVO ORDERS PROVIDE. CALL LIGHT ON BST W/IN REACH.
[2017-12-20 08:12] VITALS: BP 140/64
--- NOTE | 2017-12-20 09:35 | NUR ---
PT RESTING IN BED, NOTED DRESSING TO LLE INTACT. ENCOURAGED TO ELEVATE. EDUCATED AND ENCOURAGED IS. PLACED ON BESIDE TABLE. DISCUSSED POC, PT STATES SHE HOPES TO GO HOME TODAY. ASSESSMENT COMPLETED. CALL LIGHT IN REACH,CONTINUE TO MONITOR.
--- NOTE | 2017-12-20 11:17 | NUR ---
IRON SERUM ORDERED; PHLEB UNABLE TO OBTAIN. ATTEMPTED TO DRAW BLOOD. PT UPSET AND STATES SHE DOES NOT WANT TO HAVE BLOOD WORK DONE. WILL NOTIFY MD DURING ROUNDS. MD ON FLOOR
[2017-12-20] MEDS ORDERED: PERCOCET 10/31 COMBO PO (12:00)
[2017-12-20] MEDS ORDERED: DOXYCYC MONO100 M1 PO (12:01)
[2017-12-20 12:06] VITALS: BP 153/68
--- NOTE | 2017-12-20 12:47 | NUR ---
PT VERBALIZED TO AIR SEALING TECHNICIAN THAT SHE DOES NOT HAVE A WAY TO MOVE AROUND AT HOME AND HER BSC AT HOME IS BROKEN. CASE MANAGEMENT NOTIFIED.
--- NOTE | 2017-12-20 13:11 | NUR ---
PER CASE MANAGEMENT PT WILL BORROW HOSPITAL WHEELCHAIR UNTIL FRIDAY WHEN CASE MANAGMENT CAN OBTAIN ONE FOR HER. PT STATES SHE NEEDS A RIDE HOME, CAB TO BE CALLED. STUDENT TO BEDSIDE TO ASSIST WITH DRESSING PT.
[2017-12-20] MEDS ORDERED: OXYCOD/APAP1 TA4 PO (13:41)
--- NOTE | 2017-12-20 14:05 | NUR ---
Discharge instructions given. Patient verbalizes understanding of same. Discharged in stable condition via Taxi to Home with family. All belongings sent with pt.
== END 2017-12-20 14:02 | disposition home health service (06) | DRG 580 ==
LOC: ED 12:47 → ED-I 16:39 → ED 17:08 → MS2 17:09 → UNDODEPER 12-18 17:20 → MS2 12-20 14:02
PROVIDERS: Emergency Medicine; Internal Medicine Nephrology; ADMIT Podiatrist Foot & Ankle Surgery; ATTEND Podiatrist Foot & Ankle Surgery
PROC: 0J9R0ZZ Drainage of Left Foot Subcutaneous Tissue and Fascia, Open Approach (ICD-10-PCS; principal; 2017-12-16)
DX: L02.612 Cutaneous abscess of left foot (principal); L03.116 Cellulitis of left lower limb; M66.872 Spontaneous rupture of other tendons, left ankle and foot; I10 Essential (primary) hypertension; I25.10 Atherosclerotic heart disease of native coronary artery without angina pectoris; E11.51 Type 2 diabetes mellitus with diabetic peripheral angiopathy without gangrene; E11.65 Type 2 diabetes mellitus with hyperglycemia; E11.319 Type 2 diabetes mellitus with unspecified diabetic retinopathy without macular edema; E11.42 Type 2 diabetes mellitus with diabetic polyneuropathy; E11.43 Type 2 diabetes mellitus with diabetic autonomic (poly)neuropathy; K31.84 Gastroparesis; E78.5 Hyperlipidemia, unspecified; F17.210 Nicotine dependence, cigarettes, uncomplicated; R26.89 Other abnormalities of gait and mobility; B96.20 Unspecified Escherichia coli [E. coli] as the cause of diseases classified elsewhere; Z79.4 Long term (current) use of insulin; Z86.73 Personal history of transient ischemic attack (TIA), and cerebral infarction without residual deficits; Z95.1 Presence of aortocoronary bypass graft; Z95.820 Peripheral vascular angioplasty status with implants and grafts
CPT/HCPCS: J2710; J3370; Q9967

== ENCOUNTER 2018-03-14 21:31 | Emergency (ER) | payer OTHER ==
[~2018-03-14] VITALS: Ht 162.6 cm; Wt 59.1 kg
[~2018-03-14 21:31] MED LIST changes: +DOXYCYC MONO100 M1 PO; +OXYCOD/APAP1 TA4 PO; +PERCOCET 10/31 COMBO PO
[2018-03-14] MEDS ORDERED: BACLOFEN20 MG PO (21:48)
[2018-03-14 22:24] LABS: IMMATURE GRANULOCYTES 0.4 % (0.0-5.0); MEAN CELL VOLUME 86.8 fL CALC (80.0-100.0); MEAN CORPUSCULAR HGB 27.6 pG CALC (26.0-32.0); MEAN CORPUSCULAR HGB CONC 31.8 g/L CALC (32.0-36.0); RED BLOOD COUNT 4.46 mill/uL (4.20-5.60); RED CELL DISTRI WIDTH 13.2 % (11.5-15.5)
[2018-03-14 22:25] LABS: HEMATOCRIT 38.7 % (37.0-47.0); HEMOGLOBIN 12.3 g/dl (12.0-16.0)
[2018-03-14 23:06] LABS: ALKALINE PHOSPHATASE 55 u/l (38-126); AMYLASE < 30 u/l (30-110); ANION GAP 21 (6-22 (CALC)); BILIRUBIN, TOTAL 0.6 mg/dL (0.0-1.4); BUN 18 mg/dL (7-17); BUN/CREATININE RATIO 28 (12-20 (CALC)); CARBON DIOXIDE 21 mmol/l (22-30); CHLORIDE 106 mmol/l (95-108); CREATININE 0.6 mg/dL (0.5-1.0); GFR > 60 ML/MIN (>=60 (CALC)); GFR FOR AFR.AMER. > 60 ML/MIN (>=60 (CALC)); LIPASE 34 u/l (23-300); POTASSIUM 4.1 mmol/l (3.5-5.1); SODIUM 143 mmol/l (137-146)
[2018-03-14 23:11] LABS: ALBUMIN 4.3 g/dL (3.2-5.0); SGOT/AST 18 u/l (14-36); TOTAL PROTEIN 7.4 g/dL (6.3-8.2)
[2018-03-15] MEDS ORDERED: PHENERGAN25 MG RE (01:25)
[2018-03-15] MEDS ORDERED: TORADOL PO (01:25)
[2018-03-15 05:05] VITALS: BP 190/81
== END 2018-03-15 05:50 | disposition home or self-care (01) ==
LOC: ED 21:31
PROVIDERS: Family Medicine
DX: K52.9 Noninfective gastroenteritis and colitis, unspecified (principal); I10 Essential (primary) hypertension; E11.9 Type 2 diabetes mellitus without complications; Z95.1 Presence of aortocoronary bypass graft; Z95.820 Peripheral vascular angioplasty status with implants and grafts; Z86.73 Personal history of transient ischemic attack (TIA), and cerebral infarction without residual deficits; R10.9 Unspecified abdominal pain; R11.2 Nausea with vomiting, unspecified; R19.7 Diarrhea, unspecified

== ENCOUNTER → 2018-04-29 | Outpatient (REF) | payer OTHER ==
[~2018-04-29] MED LIST changes: +BACLOFEN20 MG PO; +TORADOL PO
== END | disposition home or self-care (01) ==
LOC: LABSPEC 13:03
PROVIDERS: ATTEND Surgery
DX: E11.621 Type 2 diabetes mellitus with foot ulcer (principal); L97.223 Non-pressure chronic ulcer of left calf with necrosis of muscle; B96.89 Other specified bacterial agents as the cause of diseases classified elsewhere

== ENCOUNTER 2018-04-30 12:08 | Emergency (ER) | payer OTHER ==
[~2018-04-30] VITALS: Ht 162.6 cm; Wt 59.0 kg
[2018-04-30 12:54] VITALS: BP 130/80
== END 2018-04-30 13:45 | disposition home or self-care (01) ==
LOC: ED 12:08
DX: E11.622 Type 2 diabetes mellitus with other skin ulcer (principal); L97.229 Non-pressure chronic ulcer of left calf with unspecified severity; I10 Essential (primary) hypertension; F17.200 Nicotine dependence, unspecified, uncomplicated; Z79.4 Long term (current) use of insulin

== ENCOUNTER 2018-06-04 10:11 | Emergency (ER) | payer OTHER ==
[~2018-06-04] VITALS: Ht 162.6 cm; Wt 60.0 kg
[2018-06-04 10:42] VITALS: BP 137/87
[2018-06-05] MEDS ORDERED: CYCLOBENZAPR10 MG PO (10:46)
[2018-06-05] MEDS ORDERED: INDOCIN50 MG/CAP PO (10:46)
[2018-06-05] MEDS ORDERED: PANTOPRAZOLE SO40 M1 PO (10:47)
[2018-06-05] MEDS ORDERED: NEURONTIN300 MG PO (10:48)
== END 2018-06-04 12:14 | disposition left against medical advice (07) | DRG 951 ==
LOC: ED 10:11 → LWOBS 12:13
DX: Z91.19 Patient's noncompliance with other medical treatment and regimen (principal)

== ENCOUNTER 2018-06-05 09:03 | Emergency (ER) | payer OTHER ==
[~2018-06-05] VITALS: Ht 162.6 cm; Wt 85.0 kg
[2018-06-05] MEDS ORDERED: CYCLOBENZAPR10 MG PO (10:46)
[2018-06-05] MEDS ORDERED: INDOCIN50 MG/CAP PO (10:46)
[2018-06-05] MEDS ORDERED: PANTOPRAZOLE SO40 M1 PO (10:47)
[2018-06-05] MEDS ORDERED: NEURONTIN300 MG PO (10:48)
[2018-06-05 13:36] VITALS: BP 112/67
== END 2018-06-05 13:36 | disposition home or self-care (01) ==
LOC: ED 09:03
DX: S70.01XA Contusion of right hip, initial encounter (principal); M25.551 Pain in right hip; W19.XXXA Unspecified fall, initial encounter; Y92.009 Unspecified place in unspecified non-institutional (private) residence as the place of occurrence of the external cause

== ENCOUNTER 2018-07-15 06:33 | Day surgery (SDC) | payer OTHER ==
[~2018-07-15 06:33] MED LIST changes: +CYCLOBENZAPR10 MG PO; +INDOCIN50 MG/CAP PO; +LYRICA75 MG PO; +NORCO1 TA2 PO; +PANTOPRAZOLE SO40 M1 PO
[2018-07-15] MEDS ORDERED: NORCO1 TA2 PO (07:29)
[2018-07-15 07:48] VITALS: BP 199/86
== END 2018-07-15 08:00 | disposition home or self-care (01) ==
LOC: ORM 06:33
PROVIDERS: ATTEND Anesthesiology Pain Medicine
DX: G90.511 Complex regional pain syndrome I of right upper limb (principal); M70.61 Trochanteric bursitis, right hip; Z53.09 Procedure and treatment not carried out because of other contraindication

== ENCOUNTER → 2018-08-05 | Day surgery (SDC) | payer OTHER ==
[2018-08-05 09:33] VITALS: BP 121/76
== END ==
LOC: ORM 06:58
PROVIDERS: ATTEND Anesthesiology Pain Medicine
DX: M70.61 Trochanteric bursitis, right hip (principal)

== ENCOUNTER 2018-08-26 05:57 | Day surgery (SDC) | payer OTHER ==
[2018-08-26 08:41] VITALS: BP 140/66
[2018-08-26] MEDS ORDERED: NORCO1 TA2 PO (08:42)
[2018-09-08] MEDS ORDERED: VICODIN ES1 TA1 PO (07:47)
== END 2018-08-26 09:15 | disposition home or self-care (01) ==
LOC: ORM 05:57
PROVIDERS: ATTEND Anesthesiology Pain Medicine
DX: M70.61 Trochanteric bursitis, right hip (principal)

== ENCOUNTER 2020-03-27 23:03 | Emergency (ER) | payer MEDICARE, MEDICAID ==
[~2020-03-27] VITALS: Ht 162.6 cm; Wt 68.0 kg
[~2020-03-27 23:03] MED LIST changes: +DICLOFENAC75 MG PO; +MEDDOSEPAK PO; +VICODIN ES1 TA1 PO
[2020-03-28] MEDS ORDERED: KEFLEX500 M1 PO (00:36)
[2020-03-28] MEDS ORDERED: PERCOCET 10/31 COMBO PO (00:36)
[2020-03-28 01:00] VITALS: BP 148/62
== END 2020-03-28 01:08 | disposition home or self-care (01) ==
LOC: ED 23:03
DX: S91.311A Laceration without foreign body, right foot, initial encounter (principal); L08.9 Local infection of the skin and subcutaneous tissue, unspecified; I10 Essential (primary) hypertension; E11.9 Type 2 diabetes mellitus without complications; F17.210 Nicotine dependence, cigarettes, uncomplicated; X58.XXXA Exposure to other specified factors, initial encounter; Z95.1 Presence of aortocoronary bypass graft; Z95.820 Peripheral vascular angioplasty status with implants and grafts; Z79.4 Long term (current) use of insulin; Z86.73 Personal history of transient ischemic attack (TIA), and cerebral infarction without residual deficits

== ENCOUNTER 2020-04-24 15:38 | Inpatient (IN) | payer MEDICARE, MEDICAID ==
[~2020-04-24] VITALS: Ht 162.6 cm; Wt 71.0 kg
[~2020-04-24 15:38] MED LIST changes: -ATORVASTATIN CA20 MG PO; +ATORVASTATIN CA40 MG PO
[2020-04-24 16:56] LABS: HEMATOCRIT 37.7 % (37.0-47.0); HEMOGLOBIN 11.6 g/dl (12.0-16.0); IMMATURE GRANULOCYTES 0.3 % (0.0-5.0); MEAN CELL VOLUME 91.1 fL CALC (80.0-100.0); MEAN CORPUSCULAR HGB CONC 30.8 g/dL CAL (32.0-36.0); NEUT# 4.26 thou/uL (2.00-7.15); RED BLOOD COUNT 4.14 mill/uL (4.20-5.60); RED CELL DISTRI WIDTH 13.7 % (11.5-15.5)
[2020-04-24 17:10] LABS: ALBUMIN 4.4 g/dL (3.2-5.0); ALKALINE PHOSPHATASE 110 u/l (38-126); BUN 9 mg/dL (7-17); BUN/CREATININE RATIO 10 (12-20 (CALC)); CARBON DIOXIDE 25 mmol/l (22-30); CHLORIDE 103 mmol/l (95-108); GFR 59 ML/MIN (>=60 (CALC)); GFR FOR AFR.AMER. > 60 ML/MIN (>=60 (CALC)); SGOT/AST 30 u/l (14-36); SODIUM 139 mmol/l (137-146); TOTAL PROTEIN 7.7 g/dL (6.3-8.2)
[2020-04-24 17:14] LABS: ANION GAP 15 (6-22 (CALC)); BILIRUBIN, TOTAL 0.9 mg/dL (0.0-1.4); POTASSIUM 4.2 mmol/l (3.5-5.1)
[2020-04-25 06:19] LABS: HEMOGLOBIN 12.5 g/dl (12.0-16.0); IMMATURE GRANULOCYTES 0.4 % (0.0-5.0); MEAN CELL VOLUME 90.6 fL CALC (80.0-100.0); MEAN CORPUSCULAR HGB 24.6 pG CALC (26.0-32.0); MEAN CORPUSCULAR HGB CONC 27.1 g/dL CAL (32.0-36.0); NEUT# 3.27 thou/uL (2.00-7.15); RED BLOOD COUNT 5.09 mill/uL (4.20-5.60); RED CELL DISTRI WIDTH 16.3 % (11.5-15.5)
[2020-04-25 06:27] LABS: HEMATOCRIT 46.1 % (37.0-47.0)
[2020-04-25 06:31] LABS: ALBUMIN 4.3 g/dL (3.2-5.0); BILIRUBIN, TOTAL 0.7 mg/dL (0.0-1.4); CREATININE 1.3 mg/dL (0.5-1.0); POTASSIUM 4.2 mmol/l (3.5-5.1); TOTAL PROTEIN 7.8 g/dL (6.3-8.2)
[2020-04-25 07:30] VITALS: BP 141/64
[2020-04-25 13:14] VITALS: BP 187/58
[2020-04-25] MEDS ORDERED: COREG6.25 MG PO (14:03)
[2020-04-25] MEDS ORDERED: LASIX 40 MG TAB40 MG PO (14:04)
[2020-04-25] MEDS ORDERED: JANUVIA100 MG PO (14:04)
[2020-04-25] MEDS ORDERED: KENALOG15 GM/TUBE EX (14:05)
[2020-04-25] MEDS ORDERED: MELOXICAM15 MG PO (14:05)
[2020-04-25 14:45] VITALS: BP 146/67
[2020-04-25 19:00] VITALS: BP 168/72
[2020-04-26] VITALS (7 sets, daily range): BP systolic 153–189; BP diastolic 48–84
[2020-04-26 06:21] LABS: IMMATURE GRANULOCYTES 0.2 % (0.0-5.0); MEAN CELL VOLUME 90.3 fL CALC (80.0-100.0); MEAN CORPUSCULAR HGB 28.4 pG CALC (26.0-32.0); MEAN CORPUSCULAR HGB CONC 31.4 g/dL CAL (32.0-36.0); NEUT# 2.51 thou/uL (2.00-7.15); RED BLOOD COUNT 3.52 mill/uL (4.20-5.60); RED CELL DISTRI WIDTH 14.1 % (11.5-15.5)
[2020-04-26 06:25] LABS: HEMATOCRIT 31.8 % (37.0-47.0)
[2020-04-26 06:35] LABS: BILIRUBIN, TOTAL 0.9 mg/dL (0.0-1.4); CREATININE 1.5 mg/dL (0.5-1.0)
[2020-04-26 06:43] LABS: ALBUMIN 3.3 g/dL (3.2-5.0)
[2020-04-27 04:00] VITALS: BP 118/47
[2020-04-27 05:58] LABS: HEMATOCRIT 32.4 % (37.0-47.0); HEMOGLOBIN 9.8 g/dl (12.0-16.0); MEAN CELL VOLUME 91.5 fL CALC (80.0-100.0); MEAN CORPUSCULAR HGB 27.7 pG CALC (26.0-32.0); MEAN CORPUSCULAR HGB CONC 30.2 g/dL CAL (32.0-36.0); RED BLOOD COUNT 3.54 mill/uL (4.20-5.60); RED CELL DISTRI WIDTH 13.9 % (11.5-15.5)
[2020-04-27 06:11] LABS: CREATININE 1.4 mg/dL (0.5-1.0); POTASSIUM 4.3 mmol/l (3.5-5.1)
[2020-04-27 07:25] VITALS: BP 157/55
[2020-04-27 10:53] VITALS: BP 154/73
[2020-04-27 14:45] VITALS: BP 150/72
[2020-04-27 19:25] VITALS: BP 144/71
[2020-04-28 04:25] VITALS: BP 131/72
[2020-04-28 06:53] LABS: HEMATOCRIT 32.3 % (37.0-47.0); MEAN CELL VOLUME 91.8 fL CALC (80.0-100.0); MEAN CORPUSCULAR HGB 28.4 pG CALC (26.0-32.0); RED BLOOD COUNT 3.52 mill/uL (4.20-5.60); RED CELL DISTRI WIDTH 14.2 % (11.5-15.5)
[2020-04-28 07:08] LABS: CREATININE 1.5 mg/dL (0.5-1.0); POTASSIUM 4.6 mmol/l (3.5-5.1)
[2020-04-28 07:46] VITALS: BP 155/68
[2020-04-28 15:04] VITALS: BP 154/74
[2020-04-28 19:50] VITALS: BP 141/84
[2020-04-29 04:20] VITALS: BP 124/58
[2020-04-29 05:59] LABS: HEMATOCRIT 30.8 % (37.0-47.0); HEMOGLOBIN 9.5 g/dl (12.0-16.0); MEAN CELL VOLUME 92.2 fL CALC (80.0-100.0); MEAN CORPUSCULAR HGB 28.4 pG CALC (26.0-32.0); MEAN CORPUSCULAR HGB CONC 30.8 g/dL CAL (32.0-36.0); RED BLOOD COUNT 3.34 mill/uL (4.20-5.60); RED CELL DISTRI WIDTH 13.8 % (11.5-15.5)
[2020-04-29 06:13] LABS: CREATININE 1.4 mg/dL (0.5-1.0); MAGNESIUM 2.1 mg/dL (1.6-2.3); POTASSIUM 4.6 mmol/l (3.5-5.1)
[2020-04-29 07:31] VITALS: BP 125/66
[2020-04-29 16:12] VITALS: BP 129/52
[2020-04-29 20:00] VITALS: BP 149/66
[2020-04-30 04:00] VITALS: BP 140/66
[2020-04-30 05:24] LABS: HEMATOCRIT 31.4 % (37.0-47.0); HEMOGLOBIN 9.6 g/dl (12.0-16.0); MEAN CELL VOLUME 91.5 fL CALC (80.0-100.0); MEAN CORPUSCULAR HGB CONC 30.6 g/dL CAL (32.0-36.0); RED BLOOD COUNT 3.43 mill/uL (4.20-5.60); RED CELL DISTRI WIDTH 13.8 % (11.5-15.5)
[2020-04-30 05:46] LABS: CREATININE 1.5 mg/dL (0.5-1.0); POTASSIUM 4.1 mmol/l (3.5-5.1)
[2020-04-30 07:46] VITALS: BP 154/64
[2020-04-30 15:30] VITALS: BP 140/84
[2020-04-30 20:00] VITALS: BP 140/60
[2020-05-01 04:00] VITALS: BP 152/68
[2020-05-01 06:04] LABS: CREATININE 1.2 mg/dL (0.5-1.0); POTASSIUM 3.7 mmol/l (3.5-5.1)
[2020-05-01 07:30] VITALS: BP 162/66
[2020-05-01 17:09] VITALS: BP 143/77
[2020-05-01 19:00] VITALS: BP 154/71
[2020-05-02 05:07] VITALS: BP 116/64
[2020-05-02 08:20] VITALS: BP 126/78
[2020-05-02] MEDS ORDERED: KEFLEX500 MG PO (14:19)
[2020-05-02] MEDS ORDERED: CIPROFLOXACN500 MG PO (14:19)
[2020-05-02] MEDS ORDERED: AMLODIPINE BES2.5 MG PO (14:21)
[2020-05-02] MEDS ORDERED: HYDROCO/APAP1 TA9 PO (15:02)
[2020-05-02 15:15] VITALS: BP 154/76
== END 2020-05-02 15:45 | disposition home or self-care (01) | DRG 623 ==
LOC: ED 15:38 → ED-I 16:55 → ED 18:00 → ED-I 18:01 → MS2 18:01 → ED-I 18:01 → MS2 04-25 11:23
PROVIDERS: Family Medicine; Nurse Practitioner; Nurse Practitioner Family; ADMIT Internal Medicine; ATTEND Internal Medicine
PROC: 02HV33Z Insertion of Infusion Device into Superior Vena Cava, Percutaneous Approach (ICD-10-PCS; 2020-04-25)
PROC: B518ZZA Fluoroscopy of Superior Vena Cava, Guidance (ICD-10-PCS; 2020-04-25)
PROC: 0JBQ0ZZ Excision of Right Foot Subcutaneous Tissue and Fascia, Open Approach (ICD-10-PCS; principal; 2020-04-26)
DX: E11.621 Type 2 diabetes mellitus with foot ulcer (principal); L03.115 Cellulitis of right lower limb; L97.519 Non-pressure chronic ulcer of other part of right foot with unspecified severity; N17.9 Acute kidney failure, unspecified; E11.51 Type 2 diabetes mellitus with diabetic peripheral angiopathy without gangrene; I12.9 Hypertensive chronic kidney disease with stage 1 through stage 4 chronic kidney disease, or unspecified chronic kidney disease; E11.22 Type 2 diabetes mellitus with diabetic chronic kidney disease; N18.9 Chronic kidney disease, unspecified; I25.10 Atherosclerotic heart disease of native coronary artery without angina pectoris; L40.9 Psoriasis, unspecified; F17.200 Nicotine dependence, unspecified, uncomplicated; B96.89 Other specified bacterial agents as the cause of diseases classified elsewhere; B95.4 Other streptococcus as the cause of diseases classified elsewhere; Z95.820 Peripheral vascular angioplasty status with implants and grafts; Z86.73 Personal history of transient ischemic attack (TIA), and cerebral infarction without residual deficits; Z95.1 Presence of aortocoronary bypass graft; Z79.4 Long term (current) use of insulin; Z20.822 Contact with and (suspected) exposure to COVID-19
CPT/HCPCS: A9579; J0692; J1650; J2020; J3370; Q3014

== ENCOUNTER 2020-07-27 16:19 | Emergency (ER) | payer MEDICARE, MEDICAID ==
[~2020-07-27] VITALS: Ht 162.6 cm; Wt 70.4 kg
[~2020-07-27 16:19] MED LIST changes: +AMLODIPINE BES2.5 MG PO; +COREG6.25 MG PO; +HYDROCO/APAP1 TA9 PO; +JANUVIA100 MG PO; +KEFLEX500 MG PO; +KENALOG15 GM/TUBE EX; +LASIX 40 MG TAB40 MG PO; +MELOXICAM15 MG PO
[2020-07-27] MEDS ORDERED: VOLTAREN75 MG PO (23:13)
[2020-07-27] MEDS ORDERED: PERCOCET 10/31 COMBO PO (23:13)
[2020-07-27 23:23] VITALS: BP 188/92
[2020-09-15] MEDS ORDERED: BACLOFEN10 MG PO (11:38)
[2020-09-15] MEDS ORDERED: PROTONIX20 M1 PO (11:38)
[2020-09-15] MEDS ORDERED: HYDRALAZINE10 M2 PO (11:38)
[2020-09-15] MEDS ORDERED: NAPROXEN250 MG PO (11:39)
[2020-09-15] MEDS ORDERED: POLYETHYLEN1 XX (11:39)
== END 2020-07-28 00:05 | disposition home or self-care (01) ==
LOC: ED 16:19
DX: S32.401A Unspecified fracture of right acetabulum, initial encounter for closed fracture (principal); I10 Essential (primary) hypertension; E11.9 Type 2 diabetes mellitus without complications; F17.210 Nicotine dependence, cigarettes, uncomplicated; Z79.4 Long term (current) use of insulin; Z98.890 Other specified postprocedural states; W01.0XXA Fall on same level from slipping, tripping and stumbling without subsequent striking against object, initial encounter; Y92.009 Unspecified place in unspecified non-institutional (private) residence as the place of occurrence of the external cause; Z95.820 Peripheral vascular angioplasty status with implants and grafts; Z95.1 Presence of aortocoronary bypass graft

== ENCOUNTER 2020-09-10 16:23 | Emergency (ER) | payer MEDICARE, MEDICAID ==
[~2020-09-10] VITALS: Ht 162.6 cm; Wt 70.0 kg
[~2020-09-10 16:23] MED LIST changes: +VOLTAREN75 MG PO
[2020-09-10 16:39] VITALS: BP 126/78
[2020-09-10 17:30] LABS: HEMATOCRIT 46.8 % (37.0-47.0); HEMOGLOBIN 14.3 g/dl (12.0-16.0); IMMATURE GRANULOCYTES 0.5 % (0.0-5.0); MEAN CORPUSCULAR HGB 27.2 pG CALC (26.0-32.0); MEAN CORPUSCULAR HGB CONC 30.6 g/dL CAL (32.0-36.0); NEUT# 8.19 thou/uL (2.00-7.15); RED BLOOD COUNT 5.26 mill/uL (4.20-5.60); RED CELL DISTRI WIDTH 12.6 % (11.5-15.5)
[2020-09-10 17:37] LABS: ALBUMIN 3.4 g/dL (3.2-5.0); CREATININE 1.3 mg/dL (0.5-1.0); TOTAL PROTEIN 6.9 g/dL (6.3-8.2)
[2020-09-10 18:37] LABS: URINE BILIRUBIN - DIPSTICK NEGATIVE (NEGATIVE); URINE BLOOD DIPSTICK SMALL (NEGATIVE); URINE COLOR YELLOW; URINE GLUCOSE - DIPSTICK 500 mg/dL (NEGATIVE); URINE KETONE NEGATIVE (NEGATIVE); URINE LEUK ESTERASE NEGATIVE (NEGATIVE); URINE PROTEIN - DIPSTICK 100 mg/dL (NEG-TRACE)
[2020-09-10 18:42] LABS: URINE NITRITE - DIPSTICK NEGATIVE (Negative)
[2020-09-10 18:49] LABS: URINE SQUAMOUS EPITHELIAL CELL FEW EPI/hpf (0-FEW); URINE WBC 0-2 WBC/hpf (0-5)
[2020-09-10] MEDS ORDERED: ULTRAM50 M1 PO (19:59)
[2020-09-10] MEDS ORDERED: ZOFRAN4 MG/TAB PO (19:59)
[2020-09-15] MEDS ORDERED: BACLOFEN10 MG PO (11:38)
[2020-09-15] MEDS ORDERED: HYDRALAZINE10 M2 PO (11:38)
[2020-09-15] MEDS ORDERED: PROTONIX20 M1 PO (11:38)
[2020-09-15] MEDS ORDERED: POLYETHYLEN1 XX (11:39)
[2020-09-15] MEDS ORDERED: NAPROXEN250 MG PO (11:39)
== END 2020-09-10 20:30 | disposition home or self-care (01) ==
LOC: ED 16:23
DX: K81.0 Acute cholecystitis (principal); I10 Essential (primary) hypertension; E11.9 Type 2 diabetes mellitus without complications; F17.210 Nicotine dependence, cigarettes, uncomplicated; Z95.1 Presence of aortocoronary bypass graft; Z95.820 Peripheral vascular angioplasty status with implants and grafts; Z79.4 Long term (current) use of insulin; Z86.73 Personal history of transient ischemic attack (TIA), and cerebral infarction without residual deficits; Z20.822 Contact with and (suspected) exposure to COVID-19
CPT/HCPCS: Q9967

== ENCOUNTER 2021-07-29 01:37 | Inpatient (IN) | payer MEDICARE, MEDICAID ==
[2021-07-29] VITALS (10 sets, daily range): BP systolic 136–186; BP diastolic 64–86
[~2021-07-29] VITALS: Ht 162.6 cm; Wt 66.0 kg
[~2021-07-29 01:37] MED LIST changes: +ASPIRIN81 MG PO; +BACLOFEN10 MG PO; +CARVEDILOL6.25 MG PO; +DICLOFENAC SODI75 MG PO; +HYDRALAZINE10 M2 PO; +LORTAB5 PO; +MELOXICAM7.5 MG PO; +NITROSTAT0.4 MG SL; +ONDANSETRON ODT8 MG SL; +POLYETHYLEN1 XX; +PROTONIX20 M1 PO; +ZOFRAN4 MG/TAB PO
[2021-07-29 02:12] LABS: URINE BILIRUBIN - DIPSTICK NEGATIVE (NEGATIVE); URINE BLOOD DIPSTICK SMALL (NEGATIVE); URINE COLOR YELLOW; URINE GLUCOSE - DIPSTICK >=1000 mg/dL (NEGATIVE); URINE KETONE NEGATIVE (NEGATIVE); URINE LEUK ESTERASE NEGATIVE (NEGATIVE); URINE PROTEIN - DIPSTICK 100 mg/dL (NEG-TRACE); URINE UROBILINOGEN - DIPSTICK 0.2 E.U./dL (0.2)
[2021-07-29 02:13] LABS: URINE NITRITE - DIPSTICK NEGATIVE (Negative)
[2021-07-29 02:22] LABS: HEMATOCRIT 46.4 % (37.0-47.0); HEMOGLOBIN 14.9 g/dl (12.0-16.0); IMMATURE GRANULOCYTES 0.6 % (0.0-5.0); INTERNATIONAL NORMALIZED RATIO 0.9 RATIO (0.7-1.3); MEAN CELL VOLUME 89.1 fL CALC (80.0-100.0); MEAN CORPUSCULAR HGB 28.6 pG CALC (26.0-32.0); MEAN CORPUSCULAR HGB CONC 32.1 g/dL CAL (32.0-36.0); NEUT# 5.16 thou/uL (2.00-7.15); PROTHROMBIN TIME 9.8 SECONDS (9.0-12.5); RED BLOOD COUNT 5.21 mill/uL (4.20-5.60); RED CELL DISTRI WIDTH 12.5 % (11.5-15.5)
[2021-07-29 02:28] LABS: ALBUMIN 3.9 g/dL (3.2-5.0); BILIRUBIN, TOTAL 0.3 mg/dL (0.0-1.4); CREATININE 1.5 mg/dL (0.5-1.0); TOTAL PROTEIN 7.8 g/dL (6.3-8.2)
[2021-07-29 02:30] LABS: URINE MUCUS FEW hpf (NONE-FEW); URINE SQUAMOUS EPITHELIAL CELL MANY EPI/hpf (0-FEW)
[2021-07-29 02:36] LABS: POTASSIUM 5.3 mmol/l (3.5-5.1)
[2021-07-29 04:44] LABS: ALBUMIN 3.6 g/dL (3.2-5.0); ALKALINE PHOSPHATASE 161 u/l (38-126); BILIRUBIN, TOTAL 0.2 mg/dL (0.0-1.4); C-REACTIVE PROTEIN < 0.5 mg/dL (0-0.9); CALCULATED LDLCHOLESTEROL 110 mg/dL (62-129 (CALC)); HDL CHOLESTEROL 54 mg/dL (>=40); MAGNESIUM 1.9 mg/dL (1.6-2.3); SGOT/AST 16 u/l (14-36); TOTAL PROTEIN 7.1 g/dL (6.3-8.2); TOTAL TRIGLYCERIDES 245 mg/dl (30-149); VLDL CHOLESTROL 49 mg/dl (1-41 (CALC))
[2021-07-29 04:48] LABS: CHOLESTEROL HDL RATIO 3.9 (<4.4 (CALC)); TOTAL CHOLESTEROL 213 mg/dl (0-199)
[2021-07-29 09:47] LABS: HEMATOCRIT 44.8 % (37.0-47.0); HEMOGLOBIN 14.4 g/dl (12.0-16.0); IMMATURE GRANULOCYTES 0.6 % (0.0-5.0); MEAN CELL VOLUME 89.1 fL CALC (80.0-100.0); MEAN CORPUSCULAR HGB 28.6 pG CALC (26.0-32.0); MEAN CORPUSCULAR HGB CONC 32.1 g/dL CAL (32.0-36.0); NEUT# 4.95 thou/uL (2.00-7.15); RED BLOOD COUNT 5.03 mill/uL (4.20-5.60); RED CELL DISTRI WIDTH 12.8 % (11.5-15.5)
[2021-07-29 10:06] LABS: ANION GAP 14 (6-22 (CALC)); BUN 30 mg/dL (7-17); BUN/CREATININE RATIO 27 (12-20 (CALC)); CARBON DIOXIDE 25 mmol/l (22-30); CHLORIDE 106 mmol/l (95-108); CREATININE 1.1 mg/dL (0.5-1.0); GFR FOR AFR.AMER. > 60 ML/MIN (>=60 (CALC)); GFR OTHER RACES 53 ML/MIN (>=60 (CALC)); POTASSIUM 4.7 mmol/l (3.5-5.1); SODIUM 140 mmol/l (137-146)
[2021-07-30 00:05] VITALS: BP 134/59
[2021-07-30 03:38] VITALS: BP 131/54
[2021-07-30 04:38] LABS: IMMATURE GRANULOCYTES 0.6 % (0.0-5.0); MEAN CELL VOLUME 89.8 fL CALC (80.0-100.0); MEAN CORPUSCULAR HGB 28.6 pG CALC (26.0-32.0); MEAN CORPUSCULAR HGB CONC 31.8 g/dL CAL (32.0-36.0); NEUT# 3.6 thou/uL (2.00-7.15); RED BLOOD COUNT 4.23 mill/uL (4.20-5.60); RED CELL DISTRI WIDTH 12.8 % (11.5-15.5)
[2021-07-30 04:52] LABS: CREATININE 1.2 mg/dL (0.5-1.0); POTASSIUM 4.1 mmol/l (3.5-5.1)
[2021-07-30 05:01] LABS: ALBUMIN 2.7 g/dL (3.2-5.0); BILIRUBIN, TOTAL 0.1 mg/dL (0.0-1.4); HEMOGLOBIN 12.1 g/dl (12.0-16.0); TOTAL PROTEIN 5.5 g/dL (6.3-8.2)
[2021-07-30 07:57] VITALS: BP 124/59
[2021-07-30 08:00] VITALS: BP 124/59
[2021-07-30 15:06] VITALS: BP 151/65
[2021-07-30 19:04] VITALS: BP 123/48
[2021-07-31 05:00] VITALS: BP 128/46
[2021-07-31 07:30] VITALS: BP 129/43
[2021-07-31 08:00] VITALS: BP 129/43
[2021-07-31 11:06] LABS: HEMATOCRIT 41.5 % (37.0-47.0); HEMOGLOBIN 12.9 g/dl (12.0-16.0); IMMATURE GRANULOCYTES 0.8 % (0.0-5.0); MEAN CELL VOLUME 92.6 fL CALC (80.0-100.0); MEAN CORPUSCULAR HGB 28.8 pG CALC (26.0-32.0); MEAN CORPUSCULAR HGB CONC 31.1 g/dL CAL (32.0-36.0); NEUT# 4.56 thou/uL (2.00-7.15); RED BLOOD COUNT 4.48 mill/uL (4.20-5.60); RED CELL DISTRI WIDTH 12.8 % (11.5-15.5)
[2021-07-31 11:07] LABS: CREATININE 1.6 mg/dL (0.5-1.0)
[2021-07-31 11:12] LABS: INTERNATIONAL NORMALIZED RATIO 1.5 RATIO (0.7-1.3); PROTHROMBIN TIME 15.2 SECONDS (9.0-12.5)
[2021-07-31 11:13] LABS: POTASSIUM 5.5 mmol/l (3.5-5.1)
[2021-07-31 15:29] VITALS: BP 145/72
[2021-07-31 19:00] VITALS: BP 129/60
[2021-08-01 04:20] VITALS: BP 147/57
[2021-08-01 07:26] VITALS: BP 142/58
[2021-08-01 10:23] VITALS: BP 150/71
[2021-08-01] MEDS ORDERED: ATORVASTATIN CA80 MG PO (13:18)
[2021-08-01] MEDS ORDERED: PLAVIX75 MG PO (13:22)
== END 2021-08-01 14:09 | disposition home or self-care (01) | DRG 65 ==
LOC: ED 01:37 → ED-I 02:14 → ED 02:14 → ED-I 03:23 → ED 03:46 → MS2 03:47
PROVIDERS: Family Medicine; Nurse Practitioner; ADMIT Internal Medicine; ATTEND Internal Medicine
DX: I63.81 Other cerebral infarction due to occlusion or stenosis of small artery (principal); I69.351 Hemiplegia and hemiparesis following cerebral infarction affecting right dominant side; N17.9 Acute kidney failure, unspecified; G83.14 Monoplegia of lower limb affecting left nondominant side; R29.700 NIHSS score 0; I12.9 Hypertensive chronic kidney disease with stage 1 through stage 4 chronic kidney disease, or unspecified chronic kidney disease; E11.22 Type 2 diabetes mellitus with diabetic chronic kidney disease; E11.65 Type 2 diabetes mellitus with hyperglycemia; N18.9 Chronic kidney disease, unspecified; E11.51 Type 2 diabetes mellitus with diabetic peripheral angiopathy without gangrene; I65.22 Occlusion and stenosis of left carotid artery; E78.5 Hyperlipidemia, unspecified; I25.10 Atherosclerotic heart disease of native coronary artery without angina pectoris; F17.200 Nicotine dependence, unspecified, uncomplicated; T39.016A Underdosing of aspirin, initial encounter; Z91.128 Patient's intentional underdosing of medication regimen for other reason; Z95.820 Peripheral vascular angioplasty status with implants and grafts; Z95.1 Presence of aortocoronary bypass graft; Z79.4 Long term (current) use of insulin; Z95.5 Presence of coronary angioplasty implant and graft; Z20.822 Contact with and (suspected) exposure to COVID-19

== ENCOUNTER 2021-09-18 15:32 | Emergency (ER) | payer OTHER, MEDICARE, MEDICAID ==
[~2021-09-18] VITALS: Ht 162.6 cm; Wt 64.0 kg
[~2021-09-18 15:32] MED LIST changes: +ATORVASTATIN CA80 MG PO; +PLAVIX75 MG PO
[2021-09-18 15:58] LABS: HEMATOCRIT 35.9 % (37.0-47.0); IMMATURE GRANULOCYTES 0.3 % (0.0-5.0); MEAN CELL VOLUME 89.5 fL CALC (80.0-100.0); MEAN CORPUSCULAR HGB 29.9 pG CALC (26.0-32.0); MEAN CORPUSCULAR HGB CONC 33.4 g/dL CAL (32.0-36.0); NEUT# 3.92 thou/uL (2.00-7.15); RED BLOOD COUNT 4.01 mill/uL (4.20-5.60); RED CELL DISTRI WIDTH 12.9 % (11.5-15.5)
[2021-09-18 16:17] LABS: ALKALINE PHOSPHATASE 101 u/l (38-126); CARBON DIOXIDE 22 mmol/l (22-30); CHLORIDE 108 mmol/l (95-108); CREATININE 1.3 mg/dL (0.5-1.0); GFR FOR AFR.AMER. 53 ML/MIN (>=60 (CALC)); GFR OTHER RACES 44 ML/MIN (>=60 (CALC)); LIPASE 211 u/l (23-300); SGOT/AST 20 u/l (14-36); SODIUM 139 mmol/l (137-146)
[2021-09-18 16:20] LABS: ALBUMIN 3.9 g/dL (3.2-5.0); ANION GAP 13 (6-22 (CALC)); BILIRUBIN, TOTAL 0.7 mg/dL (0.0-1.4); BUN 16 mg/dL (7-17); BUN/CREATININE RATIO 12 (12-20 (CALC)); POTASSIUM 3.8 mmol/l (3.5-5.1); TOTAL PROTEIN 7.2 g/dL (6.3-8.2)
[2021-09-18 16:21] LABS: PROTHROMBIN TIME 10.5 SECONDS (9.0-12.5)
[2021-09-18 16:28] LABS: MYOGLOBIN 53 ng/mL (0 - 62)
[2021-09-18 17:39] LABS: URINE BILIRUBIN - DIPSTICK NEGATIVE (NEGATIVE); URINE BLOOD DIPSTICK SMALL (NEGATIVE); URINE COLOR YELLOW; URINE GLUCOSE - DIPSTICK 500 mg/dL (NEGATIVE); URINE KETONE NEGATIVE (NEGATIVE); URINE LEUK ESTERASE TRACE (NEGATIVE); URINE PROTEIN - DIPSTICK 100 mg/dL (NEG-TRACE); URINE SPECIFIC GRAVITY >=1.030; URINE UROBILINOGEN - DIPSTICK 0.2 E.U./dL (0.2)
[2021-09-18 17:44] LABS: URINE NITRITE - DIPSTICK NEGATIVE (Negative)
[2021-09-18 17:53] LABS: URINE BACTERIA FEW hpf; URINE SQUAMOUS EPITHELIAL CELL MODERATE EPI/hpf (0-FEW)
[2021-09-18 20:25] VITALS: BP 159/66
== END 2021-09-18 20:40 | disposition left against medical advice (07) | DRG 313 ==
LOC: ED 15:32
PROVIDERS: Nurse Practitioner
DX: R07.9 Chest pain, unspecified (principal); R00.2 Palpitations; I10 Essential (primary) hypertension; E11.9 Type 2 diabetes mellitus without complications; I25.10 Atherosclerotic heart disease of native coronary artery without angina pectoris; E78.5 Hyperlipidemia, unspecified; I69.90 Unspecified sequelae of unspecified cerebrovascular disease; F17.200 Nicotine dependence, unspecified, uncomplicated; Z91.19 Patient's noncompliance with other medical treatment and regimen; Z79.4 Long term (current) use of insulin; Z95.5 Presence of coronary angioplasty implant and graft; Z95.1 Presence of aortocoronary bypass graft; V89.2XXA Person injured in unspecified motor-vehicle accident, traffic, initial encounter

== ENCOUNTER 2022-12-01 11:33 | Observation (INO) | payer MEDICARE, MEDICAID ==
[2022-12-01] VITALS (16 sets, daily range): BP systolic 157–213; BP diastolic 59–119
[~2022-12-01] VITALS: Ht 162.6 cm; Wt 63.0 kg
[~2022-12-01 11:33] MED LIST changes: +DOXYCYCLINE100 MG PO; +NAPROXEN500 MG PO; +OMNI-PAC300 MG PO; +TRAMADOL HYDROC50 M1 PO
[2022-12-01 13:37] LABS: BASO% 0.2 % (0-3); EOS% 0.2 % (0-8); HEMATOCRIT 35.5 % (37.0-47.0); HEMOGLOBIN 11.2 g/dl (12.0-16.0); IMMATURE GRANULOCYTES 1.5 % (0.0-5.0); LYMPH% 13.2 % (15-41); MEAN CELL VOLUME 89.6 fL CALC (80.0-100.0); MEAN CORPUSCULAR HGB 28.3 pG CALC (26.0-32.0); MEAN CORPUSCULAR HGB CONC 31.5 g/dL CAL (32.0-36.0); MONO% 5.1 % (2-13); NEUT# 9.2 thou/uL (2.00-7.15); NEUT% 79.8 % (42-76); RED BLOOD COUNT 3.96 mill/uL (4.20-5.60); RED CELL DISTRI WIDTH 12.3 % (11.5-15.5)
[2022-12-01 13:49] LABS: ALBUMIN 3.1 g/dL (3.2-5.0); CREATININE 1.4 mg/dL (0.5-1.0); POTASSIUM 4.1 mmol/l (3.5-5.1); TOTAL PROTEIN 6.9 g/dL (6.3-8.2)
[2022-12-01 13:51] LABS: BILIRUBIN, TOTAL 0.5 mg/dL (0.02-1.3)
[2022-12-02] VITALS (8 sets, daily range): BP systolic 138–189; BP diastolic 53–113
[2022-12-02 03:14] LABS: URINE BLOOD DIPSTICK Moderate (NEGATIVE); URINE COLOR Yellow; URINE GLUCOSE - DIPSTICK Negative (NEGATIVE); URINE KETONE Trace mg/dL (NEGATIVE); URINE LEUK ESTERASE Trace (NEGATIVE); URINE NITRITE - DIPSTICK Negative (Negative); URINE PH 5.5 (4.5-8.0); URINE PROTEIN - DIPSTICK >=300 mg/dL (NEG-TRACE); URINE SPECIFIC GRAVITY >=1.030; URINE UROBILINOGEN - DIPSTICK 0.2 E.U./dL (0.2)
[2022-12-02 03:21] LABS: URINE AMORPH SEDIMENT FEW hpf (NONE-FEW); URINE BACTERIA MODERATE hpf; URINE MUCUS FEW hpf (NONE-FEW); URINE SQUAMOUS EPITHELIAL CELL FEW EPI/hpf (0-FEW); URINE YEAST FEW hpf
[2022-12-02 05:40] LABS: BASO% 0.3 % (0-3); EOS% 0.3 % (0-8); HEMATOCRIT 33.8 % (37.0-47.0); HEMOGLOBIN 10.4 g/dl (12.0-16.0); IMMATURE GRANULOCYTES 1.4 % (0.0-5.0); LYMPH% 11.1 % (15-41); MEAN CELL VOLUME 90.9 fL CALC (80.0-100.0); MEAN CORPUSCULAR HGB CONC 30.8 g/dL CAL (32.0-36.0); MONO% 5.3 % (2-13); NEUT# 7.45 thou/uL (2.00-7.15); NEUT% 81.6 % (42-76); RED BLOOD COUNT 3.72 mill/uL (4.20-5.60); RED CELL DISTRI WIDTH 12.2 % (11.5-15.5)
[2022-12-02 05:59] LABS: ALBUMIN 2.6 g/dL (3.2-5.0); BILIRUBIN, TOTAL 0.6 mg/dL (0.02-1.3); CHOLESTEROL HDL RATIO 4.3 (<4.4 (CALC)); CREATININE 1.5 mg/dL (0.5-1.0); MAGNESIUM 1.9 mg/dL (1.6-2.3); POTASSIUM 4.5 mmol/l (3.5-5.1); TOTAL PROTEIN 5.9 g/dL (6.3-8.2)
[2022-12-02 07:33] LABS: INTERNATIONAL NORMALIZED RATIO 1.2 RATIO (0.7-1.3)
[2022-12-02 09:39] LABS: HEMATOCRIT 34.9 % (37.0-47.0); HEMOGLOBIN 10.8 g/dl (12.0-16.0); MEAN CELL VOLUME 91.1 fL CALC (80.0-100.0); MEAN CORPUSCULAR HGB 28.2 pG CALC (26.0-32.0); MEAN CORPUSCULAR HGB CONC 30.9 g/dL CAL (32.0-36.0); RED BLOOD COUNT 3.83 mill/uL (4.20-5.60); RED CELL DISTRI WIDTH 12.2 % (11.5-15.5)
== END 2022-12-02 17:00 | disposition short-term general hospital (02) ==
LOC: ED 11:33 → ED-I 14:00 → ED 14:18 → MS2 14:19 → ICU 12-02 06:30
PROVIDERS: Family Medicine; Student in an Organized Health Care Education/Training Program; ADMIT Student in an Organized Health Care Education/Training Program; ATTEND Student in an Organized Health Care Education/Training Program
DX: L03.115 Cellulitis of right lower limb (principal); I21.4 Non-ST elevation (NSTEMI) myocardial infarction; N17.9 Acute kidney failure, unspecified; I10 Essential (primary) hypertension; E11.51 Type 2 diabetes mellitus with diabetic peripheral angiopathy without gangrene; E78.5 Hyperlipidemia, unspecified; I25.10 Atherosclerotic heart disease of native coronary artery without angina pectoris; I69.951 Hemiplegia and hemiparesis following unspecified cerebrovascular disease affecting right dominant side; F17.200 Nicotine dependence, unspecified, uncomplicated; S80.811A Abrasion, right lower leg, initial encounter; W54.8XXA Other contact with dog, initial encounter; Z79.4 Long term (current) use of insulin; Z95.5 Presence of coronary angioplasty implant and graft; Z95.1 Presence of aortocoronary bypass graft; Z95.820 Peripheral vascular angioplasty status with implants and grafts
CPT/HCPCS: J0692; J0878; J1644; J1650; S0164

== ENCOUNTER 2023-04-10 10:32 | Emergency (ER) | payer MEDICARE, MEDICAID ==
[~2023-04-10] VITALS: Ht 162.6 cm; Wt 58.9 kg
[2023-04-10] VITALS (10 sets, daily range): BP systolic 98–174; BP diastolic 77–116
[2023-04-10 11:34] LABS: BASO% 0.3 % (0-3); EOS% 1.5 % (0-8); HEMATOCRIT 44.6 % (37.0-47.0); HEMOGLOBIN 13.1 g/dl (12.0-16.0); IMMATURE GRANULOCYTES 0.3 % (0.0-5.0); LYMPH% 20.9 % (15-41); MEAN CELL VOLUME 85.3 fL CALC (80.0-100.0); MEAN CORPUSCULAR HGB CONC 29.4 g/dL CAL (32.0-36.0); MONO% 5.1 % (2-13); NEUT# 4.69 thou/uL (2.00-7.15); NEUT% 71.9 % (42-76); RED BLOOD COUNT 5.23 mill/uL (4.20-5.60); RED CELL DISTRI WIDTH 14.9 % (11.5-15.5)
[2023-04-10 12:31] LABS: INTERNATIONAL NORMALIZED RATIO 1.2 RATIO (0.7-1.3)
[2023-04-10 12:32] LABS: URINE BILIRUBIN - DIPSTICK Negative (NEGATIVE); URINE BLOOD DIPSTICK Small (NEGATIVE); URINE GLUCOSE - DIPSTICK 100 mg/dL (NEGATIVE); URINE KETONE Negative (NEGATIVE); URINE LEUK ESTERASE Negative (NEGATIVE); URINE NITRITE - DIPSTICK Negative (Negative); URINE PH 5.5 (4.5-8.0); URINE PROTEIN - DIPSTICK >=300 mg/dL (NEG-TRACE); URINE SPECIFIC GRAVITY 1.025; URINE UROBILINOGEN - DIPSTICK 0.2 E.U./dL (0.2)
[2023-04-10 12:33] LABS: URINE COLOR Yellow; URINE EPITHELIAL CELLS FEW EPI/hpf (0-FEW)
[2023-04-10 12:34] LABS: URINE MUCUS MODERATE hpf (NONE-FEW)
[2023-04-10 14:10] LABS: ALBUMIN 3.6 g/dL (3.2-5.0); BILIRUBIN, TOTAL 0.8 mg/dL (0.02-1.3); CREATININE 1.3 mg/dL (0.5-1.0); TOTAL PROTEIN 6.7 g/dL (6.3-8.2)
[2023-04-10] MEDS ORDERED: LASIX 40 MG TAB40 MG PO (14:43)
[2023-04-10] MEDS ORDERED: ZPAK PO (14:43)
[2023-04-10] MEDS ORDERED: AMOX/K CLAV875 M1 PO (14:43)
== END 2023-04-10 15:00 | disposition home or self-care (01) ==
LOC: ED 10:32
PROVIDERS: Family Medicine
DX: J18.9 Pneumonia, unspecified organism (principal); I10 Essential (primary) hypertension; E11.9 Type 2 diabetes mellitus without complications; R60.0 Localized edema; F17.200 Nicotine dependence, unspecified, uncomplicated; Z95.1 Presence of aortocoronary bypass graft; Z86.73 Personal history of transient ischemic attack (TIA), and cerebral infarction without residual deficits; Z20.822 Contact with and (suspected) exposure to COVID-19; Z79.4 Long term (current) use of insulin

== ENCOUNTER 2023-08-24 11:58 | Inpatient (IN) | payer MEDICARE, MEDICAID ==
[~2023-08-24] VITALS: Ht 162.6 cm; Wt 68.4 kg
[2023-08-24] VITALS (11 sets, daily range): BP systolic 130–156; BP diastolic 79–101
[~2023-08-24 11:58] MED LIST changes: +ZPAK PO
[2023-08-24 13:12] LABS: BASO% 0.2 % (0-3); EOS% 0.1 % (0-8); HEMATOCRIT 43.4 % (37.0-47.0); HEMOGLOBIN 11.9 g/dl (12.0-16.0); IMMATURE GRANULOCYTES 0.3 % (0.0-5.0); LYMPH% 29.2 % (15-41); MEAN CELL VOLUME 86.5 fL CALC (80.0-100.0); MEAN CORPUSCULAR HGB 23.7 pG CALC (26.0-32.0); MEAN CORPUSCULAR HGB CONC 27.4 g/dL CAL (32.0-36.0); NEUT# 6.38 thou/uL (2.00-7.15); NEUT% 60.2 % (42-76); RED BLOOD COUNT 5.02 mill/uL (4.20-5.60); RED CELL DISTRI WIDTH 20.2 % (11.5-15.5)
[2023-08-24 13:24] LABS: ALBUMIN 3.1 g/dL (3.2-5.0); ALKALINE PHOSPHATASE 132 u/l (38-126); ANION GAP 13 (6-22 (CALC)); BILIRUBIN, TOTAL 2.9 mg/dL (0.02-1.3); BUN 39 mg/dL (7-17); BUN/CREATININE RATIO 22 (12-20 (CALC)); CARBON DIOXIDE 17 mmol/l (22-30); CHLORIDE 107 mmol/l (95-108); CREATININE 1.8 mg/dL (0.5-1.0); ESTIMATED GFR 34 ML/MIN (>=90 (CALC)); POTASSIUM 5.5 mmol/l (3.5-5.1); SGOT/AST 308 u/l (14-36); SODIUM 131 mmol/l (137-146); TOTAL PROTEIN 6.8 g/dL (6.3-8.2)
[2023-08-24] MEDS ORDERED: DOXYCYCLINE HYCLATE 100 MG in SODIUM CHLORIDE 0.9% 100 ML IV ONE (14:10)
[2023-08-24] MEDS ORDERED: SODIUM POLYSTYRENE SULFONATE 15 G/BTL POWDER PO ONE (15:10)
[2023-08-24] MEDS ORDERED: FUROSEMIDE 40 MG/TAB PO ONE (15:10)
[2023-08-24] MEDS ORDERED: DOXYCYCLINE HYCLATE 100 MG/CAP PO ONE (15:10)
[2023-08-24] MEDS ORDERED: MAGNESIUM HYDROXIDE 30 ML UDC PO PRN (15:45)
[2023-08-24] MEDS ORDERED: ACETAMINOPHEN 325 MG/TAB PO PRN (15:45)
[2023-08-24] MEDS ORDERED: ALPRAZolam 0.5 MG/TAB PO ONE (15:45)
[2023-08-24] MEDS ORDERED: LISINOPRIL 20 MG/TAB PO SCH (15:48)
[2023-08-24] MEDS ORDERED: DOXYCYCLINE HYCLATE 100 MG/CAP PO SCH (15:50)
[2023-08-24] MEDS ORDERED: ATORVASTATIN CA40 MG PO (16:24)
[2023-08-24] MEDS ORDERED: SENNA/DSS1 TAB PO (16:25)
[2023-08-24] MEDS ORDERED: ASPIRINCHW 81MG PO (16:26)
[2023-08-24] MEDS ORDERED: CARAFATE1 GM PO (16:26)
[2023-08-24] MEDS ORDERED: ALDACTONE25 MG PO (16:27)
[2023-08-24] MEDS ORDERED: SODIUM BICARBI650 MG PO (16:28)
[2023-08-24] MEDS ORDERED: KLOR-CON M2020 MEQ PO (16:30)
[2023-08-24] MEDS ORDERED: SKYRIZI (16:34)
[2023-08-24] MEDS ORDERED: RENAGEL800 MG PO (16:36)
[2023-08-24] MEDS ORDERED: LASIX 40 MG TAB40 MG PO (16:38)
[2023-08-24] MEDS ORDERED: CARVEDILOL3.125 MG PO (16:39)
[2023-08-24] MEDS ORDERED: LANTUS100 UNIT (16:42)
[2023-08-24] MEDS ORDERED: INSULIN LISPRO 100 UNITS/ML ML SC SCH (17:00)
[2023-08-24] MEDS ORDERED: ONDANSETRON 4 MG/TAB ODT SL ONE (17:20)
[2023-08-24] MEDS ORDERED: ONDANSETRON 4 MG/TAB ODT PO PRN (20:00)
[2023-08-24] MEDS ORDERED: SODIUM ZIRCONIUM CYCLOSILICATE 10 GM PAK PO SCH (21:00)
[2023-08-24] MEDS ORDERED: FUROSEMIDE 40 MG/TAB PO SCH (21:00)
[2023-08-25] VITALS: BP 148/84
[2023-08-25 03:16] VITALS: BP 126/77
[2023-08-25 04:00] VITALS: BP 126/77
[2023-08-25 06:00] LABS: BASO% 0.4 % (0-3); EOS% 0.2 % (0-8); HEMATOCRIT 48.5 % (37.0-47.0); HEMOGLOBIN 13.6 g/dl (12.0-16.0); IMMATURE GRANULOCYTES 0.6 % (0.0-5.0); LYMPH% 27.2 % (15-41); MEAN CELL VOLUME 85.2 fL CALC (80.0-100.0); MEAN CORPUSCULAR HGB 23.9 pG CALC (26.0-32.0); MONO% 8.7 % (2-13); NEUT# 6.42 thou/uL (2.00-7.15); NEUT% 62.9 % (42-76); RED BLOOD COUNT 5.69 mill/uL (4.20-5.60); RED CELL DISTRI WIDTH 20.7 % (11.5-15.5)
[2023-08-25 06:22] LABS: ALBUMIN 3.1 g/dL (3.2-5.0); CREATININE 1.9 mg/dL (0.5-1.0); TOTAL PROTEIN 6.6 g/dL (6.3-8.2)
[2023-08-25 06:24] LABS: POTASSIUM 5.9 mmol/l (3.5-5.1)
[2023-08-25 07:48] VITALS: BP 133/79
[2023-08-25] MEDS ORDERED: PROMETHAZINE HCL 25 MG/TAB PO PRN (08:30)
[2023-08-25 11:06] VITALS: BP 128/66
[2023-08-25] MEDS ORDERED: FUROSEMIDE 40 MG/4 ML SDV IV SCH (13:30)
[2023-08-25] MEDS ORDERED: DOXYCYCLINE HYCLATE 100 MG in SODIUM CHLORIDE 0.9% 100 ML IV SCH (15:00)
[2023-08-25 18:43] VITALS: BP 124/66
[2023-08-25 22:26] LABS: URINE BILIRUBIN - DIPSTICK Negative (NEGATIVE); URINE BLOOD DIPSTICK Trace-lysed (NEGATIVE); URINE GLUCOSE - DIPSTICK Negative (NEGATIVE); URINE KETONE Negative (NEGATIVE); URINE NITRITE - DIPSTICK Negative (Negative); URINE PROTEIN - DIPSTICK 30 mg/dL (NEG-TRACE); URINE UROBILINOGEN - DIPSTICK 0.2 E.U./dL (0.2)
[2023-08-25 22:27] LABS: URINE COLOR Yellow; URINE LEUK ESTERASE Small (NEGATIVE)
[2023-08-25 22:39] LABS: URINE SQUAMOUS EPITHELIAL CELL FEW EPI/hpf (0-FEW)
[2023-08-26] VITALS (7 sets, daily range): BP systolic 93–150; BP diastolic 56–71
[2023-08-26] MEDS ORDERED: traMADol HCL 50 MG/TAB PO PRN (03:50)
[2023-08-26] MEDS ORDERED: traMADol HCL 50 MG/TAB ONE (03:58)
[2023-08-26 05:44] LABS: BASO% 0.3 % (0-3); EOS% 0.9 % (0-8); HEMOGLOBIN 11.8 g/dl (12.0-16.0); IMMATURE GRANULOCYTES 0.5 % (0.0-5.0); LYMPH% 16.3 % (15-41); MEAN CELL VOLUME 85.3 fL CALC (80.0-100.0); MEAN CORPUSCULAR HGB 24.1 pG CALC (26.0-32.0); MEAN CORPUSCULAR HGB CONC 28.2 g/dL CAL (32.0-36.0); MONO% 6.6 % (2-13); NEUT# 5.73 thou/uL (2.00-7.15); NEUT% 75.4 % (42-76); RED BLOOD COUNT 4.9 mill/uL (4.20-5.60); RED CELL DISTRI WIDTH 20.5 % (11.5-15.5)
[2023-08-26 05:46] LABS: ALBUMIN 2.5 g/dL (3.2-5.0); BILIRUBIN, TOTAL 2.3 mg/dL (0.02-1.3); CREATININE 1.8 mg/dL (0.5-1.0); HEMATOCRIT 41.8 % (37.0-47.0); MAGNESIUM 1.9 mg/dL (1.6-2.3); TOTAL PROTEIN 5.6 g/dL (6.3-8.2)
[2023-08-26 06:11] LABS: POTASSIUM 4.5 mmol/l (3.5-5.1)
[2023-08-27] VITALS (7 sets, daily range): BP systolic 105–137; BP diastolic 59–74
[2023-08-27 05:41] LABS: BASO% 0.2 % (0-3); EOS% 0.4 % (0-8); HEMATOCRIT 39.3 % (37.0-47.0); HEMOGLOBIN 10.8 g/dl (12.0-16.0); LYMPH% 13.5 % (15-41); MEAN CELL VOLUME 84.9 fL CALC (80.0-100.0); MEAN CORPUSCULAR HGB 23.3 pG CALC (26.0-32.0); MEAN CORPUSCULAR HGB CONC 27.5 g/dL CAL (32.0-36.0); MONO% 8.9 % (2-13); NEUT# 7.03 thou/uL (2.00-7.15); RED BLOOD COUNT 4.63 mill/uL (4.20-5.60); RED CELL DISTRI WIDTH 20.3 % (11.5-15.5)
[2023-08-27 06:05] LABS: ALBUMIN 2.5 g/dL (3.2-5.0); BILIRUBIN, TOTAL 1.8 mg/dL (0.02-1.3); CREATININE 1.6 mg/dL (0.5-1.0); MAGNESIUM 1.7 mg/dL (1.6-2.3); POTASSIUM 4.2 mmol/l (3.5-5.1); TOTAL PROTEIN 5.5 g/dL (6.3-8.2)
[2023-08-28 03:48] VITALS: BP 113/60
[2023-08-28 04:00] VITALS: BP 113/60
[2023-08-28 05:30] LABS: ALBUMIN 2.1 g/dL (3.2-5.0); BILIRUBIN, TOTAL 1.3 mg/dL (0.02-1.3); CREATININE 1.4 mg/dL (0.5-1.0); MAGNESIUM 1.6 mg/dL (1.6-2.3); POTASSIUM 3.6 mmol/l (3.5-5.1); TOTAL PROTEIN 4.9 g/dL (6.3-8.2)
[2023-08-28 05:43] LABS: BASO% 0.1 % (0-3); EOS% 0.5 % (0-8); HEMOGLOBIN 9.3 g/dl (12.0-16.0); IMMATURE GRANULOCYTES 0.4 % (0.0-5.0); LYMPH% 17.4 % (15-41); MEAN CORPUSCULAR HGB 24.5 pG CALC (26.0-32.0); MEAN CORPUSCULAR HGB CONC 28.9 g/dL CAL (32.0-36.0); MONO% 10.8 % (2-13); NEUT# 5.19 thou/uL (2.00-7.15); NEUT% 70.8 % (42-76); RED BLOOD COUNT 3.79 mill/uL (4.20-5.60); RED CELL DISTRI WIDTH 19.8 % (11.5-15.5)
[2023-08-28 05:53] LABS: HEMATOCRIT 32.2 % (37.0-47.0)
[2023-08-28 07:02] VITALS: BP 111/63
[2023-08-28 15:58] VITALS: BP 132/64
[2023-08-28 18:12] VITALS: BP 125/62
[2023-08-29 03:41] VITALS: BP 90/53
[2023-08-29 04:09] VITALS: BP 90/53
[2023-08-29 05:11] LABS: ALBUMIN 2.2 g/dL (3.2-5.0); BASO% 0.3 % (0-3); BILIRUBIN, TOTAL 1.1 mg/dL (0.02-1.3); CREATININE 1.4 mg/dL (0.5-1.0); EOS% 0.5 % (0-8); HEMATOCRIT 32.3 % (37.0-47.0); HEMOGLOBIN 9.3 g/dl (12.0-16.0); IMMATURE GRANULOCYTES 0.3 % (0.0-5.0); LYMPH% 22.2 % (15-41); MAGNESIUM 1.6 mg/dL (1.6-2.3); MEAN CELL VOLUME 85.2 fL CALC (80.0-100.0); MEAN CORPUSCULAR HGB 24.5 pG CALC (26.0-32.0); MEAN CORPUSCULAR HGB CONC 28.8 g/dL CAL (32.0-36.0); MONO% 9.1 % (2-13); NEUT# 5.89 thou/uL (2.00-7.15); NEUT% 67.6 % (42-76); POTASSIUM 3.6 mmol/l (3.5-5.1); RED BLOOD COUNT 3.79 mill/uL (4.20-5.60); RED CELL DISTRI WIDTH 20.2 % (11.5-15.5); TOTAL PROTEIN 5.1 g/dL (6.3-8.2)
[2023-08-29 06:49] VITALS: BP 121/64
[2023-08-29] MEDS ORDERED: Polyethylene Glycol 3350 17 GM/PKT PO PRN (09:15)
[2023-08-29 18:50] VITALS: BP 138/69
[2023-08-30 04:22] VITALS: BP 138/70
[2023-08-30 06:08] LABS: BASO% 0.3 % (0-3); EOS% 0.9 % (0-8); HEMATOCRIT 34.2 % (37.0-47.0); HEMOGLOBIN 9.7 g/dl (12.0-16.0); IMMATURE GRANULOCYTES 0.4 % (0.0-5.0); LYMPH% 22.5 % (15-41); MEAN CELL VOLUME 85.9 fL CALC (80.0-100.0); MEAN CORPUSCULAR HGB 24.4 pG CALC (26.0-32.0); MEAN CORPUSCULAR HGB CONC 28.4 g/dL CAL (32.0-36.0); MONO% 7.7 % (2-13); NEUT# 5.45 thou/uL (2.00-7.15); NEUT% 68.2 % (42-76); RED BLOOD COUNT 3.98 mill/uL (4.20-5.60); RED CELL DISTRI WIDTH 20.1 % (11.5-15.5)
[2023-08-30 06:14] LABS: ALBUMIN 2.6 g/dL (3.2-5.0); BILIRUBIN, TOTAL 1.4 mg/dL (0.02-1.3); CREATININE 1.3 mg/dL (0.5-1.0); MAGNESIUM 1.7 mg/dL (1.6-2.3); POTASSIUM 3.8 mmol/l (3.5-5.1); TOTAL PROTEIN 5.7 g/dL (6.3-8.2)
[2023-08-30 06:54] VITALS: BP 142/74
[2023-08-30] MEDS ORDERED: SODIUM CHLORIDE 0.9% 0 ML IV ONE (13:17)
[2023-08-30 14:37] VITALS: BP 137/73
[2023-08-30 19:06] VITALS: BP 121/73
[2023-08-31 03:49] VITALS: BP 117/64
[2023-08-31 07:03] VITALS: BP 138/71
[2023-08-31 07:26] LABS: BASO% 0.3 % (0-3); EOS% 0.9 % (0-8); HEMATOCRIT 36.1 % (37.0-47.0); HEMOGLOBIN 10.1 g/dl (12.0-16.0); IMMATURE GRANULOCYTES 0.4 % (0.0-5.0); LYMPH% 21.8 % (15-41); MEAN CELL VOLUME 84.7 fL CALC (80.0-100.0); MEAN CORPUSCULAR HGB 23.7 pG CALC (26.0-32.0); MONO% 7.2 % (2-13); NEUT# 5.19 thou/uL (2.00-7.15); NEUT% 69.4 % (42-76); RED BLOOD COUNT 4.26 mill/uL (4.20-5.60); RED CELL DISTRI WIDTH 20.3 % (11.5-15.5)
[2023-08-31 07:38] LABS: ALBUMIN 2.7 g/dL (3.2-5.0); BILIRUBIN, TOTAL 1.2 mg/dL (0.02-1.3); CREATININE 1.3 mg/dL (0.5-1.0); MAGNESIUM 1.7 mg/dL (1.6-2.3); POTASSIUM 3.9 mmol/l (3.5-5.1)
[2023-08-31] MEDS ORDERED: DOCUSATE CALCIUM 240 MG/CAP PO SCH (11:00)
[2023-08-31 15:04] VITALS: BP 143/80
[2023-08-31 18:45] VITALS: BP 130/74
[2023-08-31 19:27] VITALS: BP 130/74
[2023-09-01] MEDS ORDERED: HEPARIN SODIUM FLUSH (PORCINE) 10 UNIT/ML 5ML SYR IV PRN (04:00)
[2023-09-01] MEDS ORDERED: SODIUM CHLORIDE 0.9% 10 ML SYR IV PRN (04:00)
[2023-09-01 05:10] VITALS: BP 126/70
[2023-09-01 05:11] LABS: BASO% 0.2 % (0-3); EOS% 1.3 % (0-8); HEMATOCRIT 33.4 % (37.0-47.0); HEMOGLOBIN 9.4 g/dl (12.0-16.0); IMMATURE GRANULOCYTES 0.2 % (0.0-5.0); LYMPH% 31.1 % (15-41); MEAN CELL VOLUME 85.6 fL CALC (80.0-100.0); MEAN CORPUSCULAR HGB 24.1 pG CALC (26.0-32.0); MEAN CORPUSCULAR HGB CONC 28.1 g/dL CAL (32.0-36.0); MONO% 8.4 % (2-13); NEUT# 3.22 thou/uL (2.00-7.15); NEUT% 58.8 % (42-76); RED BLOOD COUNT 3.9 mill/uL (4.20-5.60); RED CELL DISTRI WIDTH 20.2 % (11.5-15.5)
[2023-09-01 05:13] LABS: ALBUMIN 2.5 g/dL (3.2-5.0); BILIRUBIN, TOTAL 1.1 mg/dL (0.02-1.3); MAGNESIUM 1.7 mg/dL (1.6-2.3); POTASSIUM 3.7 mmol/l (3.5-5.1); TOTAL PROTEIN 5.6 g/dL (6.3-8.2)
[2023-09-01 05:43] LABS: CREATININE 1.3 mg/dL (0.5-1.0)
[2023-09-01 07:53] VITALS: BP 130/82
[2023-09-01] MEDS ORDERED: LACTULOSE 20 GM/30 ML UDC PO PRN (08:10)
[2023-09-01 16:00] VITALS: BP 174/90
[2023-09-01] MEDS ORDERED: hydrALAZINE HCL 20 MG/ML VIAL(1 ML) IV PRN (18:20)
[2023-09-01 18:27] VITALS: BP 142/84
[2023-09-01 19:00] VITALS: BP 142/84
[2023-09-02 03:39] VITALS: BP 137/74
[2023-09-02 04:00] VITALS: BP 137/74
[2023-09-02 07:00] LABS: ALBUMIN 2.7 g/dL (3.2-5.0); BILIRUBIN, TOTAL 1.2 mg/dL (0.02-1.3); CREATININE 1.3 mg/dL (0.5-1.0); MAGNESIUM 1.7 mg/dL (1.6-2.3); POTASSIUM 4.3 mmol/l (3.5-5.1)
[2023-09-02 07:20] VITALS: BP 141/76
[2023-09-02 07:58] LABS: BASO% 0.5 % (0-3); EOS% 1.5 % (0-8); HEMATOCRIT 34.8 % (37.0-47.0); IMMATURE GRANULOCYTES 0.8 % (0.0-5.0); LYMPH% 29.1 % (15-41); MEAN CELL VOLUME 84.5 fL CALC (80.0-100.0); MEAN CORPUSCULAR HGB 24.3 pG CALC (26.0-32.0); MEAN CORPUSCULAR HGB CONC 28.7 g/dL CAL (32.0-36.0); MONO% 6.5 % (2-13); NEUT# 3.82 thou/uL (2.00-7.15); NEUT% 61.6 % (42-76); RED BLOOD COUNT 4.12 mill/uL (4.20-5.60); RED CELL DISTRI WIDTH 20.1 % (11.5-15.5)
[2023-09-02] MEDS ORDERED: BISACODYL 10 MG SUPP RE SCH (11:30)
[2023-09-02] MEDS ORDERED: traMADol HCL 50 MG/TAB PO PRN (11:50)
[2023-09-02 16:04] VITALS: BP 146/82
[2023-09-02 19:06] VITALS: BP 142/78
[2023-09-02] MEDS ORDERED: SENNOSIDES-Docusate Sodium 1 COMBO TAB PO SCH (21:00)
[2023-09-03 04:51] VITALS: BP 139/75
[2023-09-03 05:43] LABS: BASO% 0.4 % (0-3); HEMATOCRIT 34.5 % (37.0-47.0); HEMOGLOBIN 9.7 g/dl (12.0-16.0); IMMATURE GRANULOCYTES 0.6 % (0.0-5.0); LYMPH% 29.3 % (15-41); MEAN CELL VOLUME 85.4 fL CALC (80.0-100.0); MEAN CORPUSCULAR HGB CONC 28.1 g/dL CAL (32.0-36.0); NEUT# 4.25 thou/uL (2.00-7.15); NEUT% 62.7 % (42-76); RED BLOOD COUNT 4.04 mill/uL (4.20-5.60); RED CELL DISTRI WIDTH 20.2 % (11.5-15.5)
[2023-09-03 05:54] LABS: ALBUMIN 2.6 g/dL (3.2-5.0); MAGNESIUM 1.7 mg/dL (1.6-2.3); POTASSIUM 3.8 mmol/l (3.5-5.1); TOTAL PROTEIN 5.9 g/dL (6.3-8.2)
[2023-09-03 05:59] LABS: CREATININE 1.3 mg/dL (0.5-1.0)
[2023-09-03 07:26] VITALS: BP 136/78
[2023-09-03] MEDS ORDERED: LISINOPRIL20 M1 PO (09:45)
[2023-09-03] MEDS ORDERED: ATORVASTATIN CA40 MG PO (09:45)
[2023-09-03] MEDS ORDERED: LASIX 40 MG TAB40 MG PO (09:45)
[2023-09-03] MEDS ORDERED: ASPIRINCHW 81MG PO (09:46)
[2023-09-03] MEDS ORDERED: PROTONIX40 M2 PO (09:47)
[2023-09-03] MEDS ORDERED: CARVEDILOL3.125 MG PO (09:48)
[2023-09-03] MEDS ORDERED: LANTUS100 UNIT SC (09:49)
[2023-09-03] MEDS ORDERED: ALDACTONE25 MG PO (09:53)
== END 2023-09-03 12:12 | disposition home health service (06) | DRG 291 ==
LOC: ED 11:58 → MS2 16:16
PROVIDERS: Family Medicine; Nurse Practitioner Family; Student in an Organized Health Care Education/Training Program; ADMIT Internal Medicine; ATTEND Internal Medicine
PROC: 05HB33Z Insertion of Infusion Device into Right Basilic Vein, Percutaneous Approach (ICD-10-PCS; principal; 2023-08-25)
DX: I13.0 Hypertensive heart and chronic kidney disease with heart failure and stage 1 through stage 4 chronic kidney disease, or unspecified chronic kidney disease (principal); I50.33 Acute on chronic diastolic (congestive) heart failure; J18.9 Pneumonia, unspecified organism; N17.9 Acute kidney failure, unspecified; L97.818 Non-pressure chronic ulcer of other part of right lower leg with other specified severity; L97.828 Non-pressure chronic ulcer of other part of left lower leg with other specified severity; L97.528 Non-pressure chronic ulcer of other part of left foot with other specified severity; L97.518 Non-pressure chronic ulcer of other part of right foot with other specified severity; L03.116 Cellulitis of left lower limb; L03.115 Cellulitis of right lower limb; J44.0 Chronic obstructive pulmonary disease with (acute) lower respiratory infection; E11.628 Type 2 diabetes mellitus with other skin complications; E11.51 Type 2 diabetes mellitus with diabetic peripheral angiopathy without gangrene; E11.42 Type 2 diabetes mellitus with diabetic polyneuropathy; I87.2 Venous insufficiency (chronic) (peripheral); E87.5 Hyperkalemia; E11.22 Type 2 diabetes mellitus with diabetic chronic kidney disease; N18.9 Chronic kidney disease, unspecified; F43.20 Adjustment disorder, unspecified; I25.10 Atherosclerotic heart disease of native coronary artery without angina pectoris; K59.00 Constipation, unspecified; B95.62 Methicillin resistant Staphylococcus aureus infection as the cause of diseases classified elsewhere; F17.200 Nicotine dependence, unspecified, uncomplicated; Z95.1 Presence of aortocoronary bypass graft; Z91.199 Patient's noncompliance with other medical treatment and regimen due to unspecified reason; Z59.10 Inadequate housing, unspecified; Z86.73 Personal history of transient ischemic attack (TIA), and cerebral infarction without residual deficits; Z95.820 Peripheral vascular angioplasty status with implants and grafts; Z79.4 Long term (current) use of insulin; Z88.1 Allergy status to other antibiotic agents
CPT/HCPCS: J0878

== ENCOUNTER 2023-09-15 10:43 | Emergency (ER) | payer MEDICARE, MEDICAID ==
[~2023-09-15] VITALS: Ht 162.6 cm; Wt 68.0 kg
[2023-09-15] VITALS (22 sets, daily range): BP systolic 119–150; BP diastolic 70–114
[~2023-09-15 10:43] MED LIST changes: +ALDACTONE25 MG PO; +ASPIRINCHW 81MG PO; +CARAFATE1 GM PO; +CARVEDILOL3.125 MG PO; +KLOR-CON M2020 MEQ PO; +LANTUS100 UNIT; +LANTUS100 UNIT SC; +LISINOPRIL20 M1 PO; +RENAGEL800 MG PO; +SENNA/DSS1 TAB PO; +SKYRIZI; +SODIUM BICARBI650 MG PO
[2023-09-15] MEDS ORDERED: MORPHINE SULFATE 4 MG/ML VIAL IV ONE ×2 (10:45→14:30)
[2023-09-15] MEDS ORDERED: ONDANSETRON HCl 4 MG/2 ML SDV IV ONE ×2 (10:45→14:30)
[2023-09-15] MEDS ORDERED: PIPERACILLIN Sodium-Tazobactam 3.375 GM in SODIUM CHLORIDE 0.9% 100 ML IV ONE (11:30)
[2023-09-15 11:42] LABS: BASO% 0.2 % (0-3); EOS% 0.2 % (0-8); HEMOGLOBIN 9.3 g/dl (12.0-16.0); IMMATURE GRANULOCYTES 0.3 % (0.0-5.0); LYMPH% 15.2 % (15-41); MEAN CELL VOLUME 87.5 fL CALC (80.0-100.0); MEAN CORPUSCULAR HGB 24.7 pG CALC (26.0-32.0); MEAN CORPUSCULAR HGB CONC 28.2 g/dL CAL (32.0-36.0); MONO% 6.1 % (2-13); NEUT# 8.29 thou/uL (2.00-7.15); RED BLOOD COUNT 3.77 mill/uL (4.20-5.60); RED CELL DISTRI WIDTH 21.2 % (11.5-15.5)
[2023-09-15 11:52] LABS: ALBUMIN 2.8 g/dL (3.2-5.0); BILIRUBIN, TOTAL 0.8 mg/dL (0.02-1.3); CREATININE 1.2 mg/dL (0.5-1.0)
[2023-09-15 12:04] LABS: POTASSIUM 4.6 mmol/l (3.5-5.1)
[2023-09-15] MEDS ORDERED: SODIUM CHLORIDE 0.9% 1,000 ML IV ONE (15:00)
== END 2023-09-15 16:30 | disposition short-term general hospital (02) ==
LOC: ED 10:43 → EDBD 11:43 → ED 16:30
PROVIDERS: Family Medicine
DX: I87.2 Venous insufficiency (chronic) (peripheral) (principal); L97.929 Non-pressure chronic ulcer of unspecified part of left lower leg with unspecified severity; L97.919 Non-pressure chronic ulcer of unspecified part of right lower leg with unspecified severity; B87.0 Cutaneous myiasis; E11.51 Type 2 diabetes mellitus with diabetic peripheral angiopathy without gangrene; F17.200 Nicotine dependence, unspecified, uncomplicated; Z86.73 Personal history of transient ischemic attack (TIA), and cerebral infarction without residual deficits; Z95.1 Presence of aortocoronary bypass graft; Z79.4 Long term (current) use of insulin; Z88.1 Allergy status to other antibiotic agents
CPT/HCPCS: J2020